=== PATIENT | male | born 1960 | race Caucasian/White ===

== ENCOUNTER 2023-04-24 11:40 | Inpatient (IN) ==
[2023-04-24] MEDS ORDERED: SODIUM CHLORIDE 0.9% 1,000 ML IV SCH (12:15)
--- NOTE | 2023-04-24 12:18 | Emergency Department Note ---
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 States that he is having pain in his kidney region but has not fallen. Has been unsteady on his feet. Not able to eat or drink anything. They report he has been able to take his pills. Denies significant difficulty breathing or cough or cold symptoms. No fevers reported. Brought immediately back from triage as he was noted to be hypotensive. Does report that he is on Keytruda and does have a port in the right upper chest but states it can be used. Denies significant chest pain at this time. Was recently evaluated here in the emergency department PAST MEDICAL HISTORY: As noted above MEDICATIONS: Reviewed home medications and they state he has been able to take t hose. SOCIAL HISTORY: Presents here with girlfriend PHYSICAL EXAM: GENERAL: alert and oriented in no acute distress on stretcher fatigued in appearance however Head: normocephalic and atraumatic EYES: No injection, discharge or icterus. NECK: Trachea midline. ENT: Mucous membranes pink and moist. LUNGS: Airway patent. No retractions. Breath sounds clear with good air entry bilaterally. HEART: Regular rate and rhythm. No chest wall tenderness with a right upper chest port appreciated subcutaneously without surrounding erythema or tenderness ABDOMEN: Soft and non-tender, without guarding or rebound. SKIN: Acyanotic, warm, dry, without rashes EXTREMITIES: Without swelling, tenderness or deformity NEUROLOGICAL: No focal deficits. No aphasia. No facial droop or slurred speech. EK bpm normal sinus rhythm. No PVC or PAC. No acute ST segment elevation or depression with a QTc of 456. CONTINUOUS CARDIAC MONITORING: was ordered and showed a heart rate of 90d bpm in normal sinus Patient's laboratory studies and imaging reviewed. Differential includes Infection, dehydration, metabolic abnormality, hypo/hyperglycemia, electrolyte disturbance, anemia, hypoxia, cardiac sources, intracerebral event, toxicologic, neurologic, as well as other pathologies. IMPRESSION/MEDICAL DECISION MAKING: Reviewed prior note and imaging reports in the computer including oncology note from the beginning of March and ER visit note from 10 days ago. Had CTs at that time and reviewed. Denies any new significant trauma. Unfortunately seems to have fairly advanced cancer. With his underlying esophageal cancer and difficult with intake unsure that this is easily fixable. Oncology note indicates that has seen Dr. Lawton who reports this is not surgical. Was given a course of antibiotics that he finished. Denies URI symptoms or significant cough. Denies fever Question if this is related to dehydration given his poor intake and given some IV fluids here. Port that he has is reportedly unable to be used. Low suspicion given the recent imaging that he has a PE. Again will evaluate to see if the stents are causing a problem with her signs of any other infection as well as obtain cultures and electrolytes to look for abnormalities. Does not seem to have any focal neurological deficits at this time and no reported significant trauma no bleeding in head CT or cervical spine CT. No significant swelling or injury noted in the extremities otherwise. Chest x-ray completed here shows evidence of some trace pleural effusion at the right base. Negative COVID testing. Blood work here without significant leukocytosis and stable minimal anemia. Borderline hyponatremia of 135. No other significant electrolyte abnormality noted. Lactate normal creatinine elevated to 2.29 today with a BUN of 33. Troponin normal and denies significant chest discomfort. U rinalysis with his indwelling stents cloudy orange with red blood cells white blood cells and some bacteria as well as a lot of epithelial cells. Difficult to interpret. Sent for culture. Procalcitonin does return moderately elevated 0.65. Given his significant illness given a dose of Zosyn. LFTs with significant abnormality today with elevated bilirubin 2.9, AST and ALT in the mid 200s as well as an alkaline phosphatase of 1802. CT imaging of the abdomen pelvis without contrast given his new renal dysfunction today shows evidence of continued cirrhosis of metastatic disease with appropriate positioning of his bilateral ureteral stents without other acute pathology noted. Will bring into the hospital for further care. Needs better long-term intake plan but a difficult situation given his underlying cancer. Family requesting urology and oncology involvement. Hospitalist was contacted. Received 2 L of IV crystalloid here for resuscitation but avoiding additional extra at this time given the finding of some effusion on the chest x- ray to avoid fluid overload. DIAGNOSIS: Dehydration, hypotension, esophageal cancer, SHANE, transaminitis DISPOSITION: Hospitalist will evaluate Patient was agreeable with this plan. Critical Care I have personally spent 32 minutes of critical care time in the direct management of this patient. This includes bedside care, interpretation of diagnostic studies, and testing, discussion with consultants, patient, and family members, and other required patient management activities. These 32 minutes is in excess of all separately billable procedures. Past Med/Surg History Medical History Bone lesion to have bone biopsies done in the near future - possible metastatic. CAD (coronary artery disease) LEXA X 1 TO LAD (02/05/18), multivessel CAD with stable class 1-2 angina pectoris per [facility] cardio records Congestive heart failure treated with entresto and jardiance. follows with Dr Jaramillo - DIMAS pate. Esophageal cancer currently being treated with chemotherapy [id number]. dx earlier in 2022. following with Oncology [facility] valerio hair. GIST, non-malignant History of malignant neoplasm of bladder secondary cancer in 2019 History of pheochromocytoma s/p adrenalectomy 02/2012 History of prostate cancer S/P PROSTATECTOMY Hx of myocardial infarction 2018 - SEE DIAMOND HAD 1 STENT Hyperlipidemia Hypertension Inguinal hernia currently on the right inguinal Maintenance chemotherapy receiving Keytruda [id number]. Port-A-Cath in place Keytruda treatments [id number]. last treatment 03/30/23. 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 patient has ongoing chemotherapy treatments every 6 weeks Traumatic leg injury ~1975 traumatic accident. extensive right leg partial amputation that was able to be repaired and reattached with extensive grafts. Surgical History H/O transurethral resection of bladder tumor (TURBT) History of biopsy of bladder hx bladder cancer. History of cholecystectomy History of cystoscopy History of esophagogastroduodenoscopy (EGD) Hx of cardiac cath LEXA X 1 TO LAD (02/05/18) Hx of colonoscopy Hx of foot surgery RLE AND SKIN GRAFTS-- MULTIPLE REVISIONS; SUBSEQUENT RLE LIMB DEFORMITY (2/2 TRAUMA)-- ABLE TO AMBULATE WITHOUT ASSISTANCE Hx of prostatectomy Family History Mother Family history of diabetes mellitus Other No family history of adverse response to anesthesia Social History Smoking Status: Never smoker Tobacco Type: Cigarettes and Smokeless Tobacco (Dip or Chew) Cigarettes Per Day: DECEMBER 2017; 1PPD X 30 YEARS; Second Hand Exposure: Yes (OCCASSIONALLY); Do You Dip or Chew Tobacco: Yes (quit 2018); Hx Alcohol Use: Yes (quit 2018) Alcohol type: hard liquor Hx Substance Use: No Preferred Language: Uruguayan Communication Ability: Effective Visual Impairment: No Limitations Cable Supervisor Required: No Beliefs That Will Affect Care: None Current Living Situation: Significant Other Current Living Situation Comment: FRIEND JOSÉ MIGUEL Feels Safe at Home: Yes Assistive Devices: None Allergies Allergies Allergy/AdvReac Type Severity Reaction Status Date / Time codeine Allergy Unknown HIVES Verified 04/05/23 15:12 Home Meds Home Medications Medication Instructions Recorded Confirmed aspirin 81 mg chewable tablet 81 mg PO QAM 04/21/18 04/14/23 alirocumab 75 mg/mL subcutaneous 75 mg subcut UD 03/28/23 04/14/23 pen injector (Praluent Pen) atorvastatin 80 mg tablet 80 mg PO QAM 03/28/23 04/14/23 betamethasone, augmented 0.05 % 1 applic topical BID PRN Skin 03/28/23 04/14/23 topical ointment Irritation empagliflozin 10 mg tablet 10 mg PO QAM 03/28/23 04/14/23 (Jardiance) ezetimibe 10 mg tablet 10 mg PO QAM 03/28/23 04/14/23 metoprolol succinate 100 mg 100 mg PO QAM 03/28/23 04/14/23 tablet,extended release 24 hr sacubitril 24 mg-valsartan 26 mg 1 tab PO BID 03/28/23 04/14/23 tablet (Entresto) spironolactone 25 mg tablet 25 mg PO QAM 03/28/23 04/14/23 Previous Rx's Medication Instructions Recorded oxycodone-acetaminophen 7.5 mg-325 1 tab PO Q8H PRN pain #7 tabs 04/08/23 mg tablet (Percocet) phenazopyridine 200 mg tablet 200 mg PO Q8H PRN pain #10 tabs 04/08/23 (Pyridium) tamsulosin 0.4 mg capsule 0.4 mg PO HS #30 caps 04/08/23 Saccharomyces boulardii 250 mg 250 mg PO BID #20 caps 04/14/23 capsule (Florastor) docusate sodium 100 mg capsule 100 mg PO BID PRN constipation #30 04/14/23 (Stool Softener) caps oxycodone 5 mg tablet 5 mg PO Q6H PRN pain #14 tabs 04/14/23 Results & Data (ED) Vital Signs Vital Signs - 24 hr 04/24/23 11:48 04/24/23 12:00 04/24/23 12:16 Temperature 36.3 C L Temperature Source Temporal Artery Scan Pulse Rate 99 H Pulse Rate [Apical] 94 H Pulse Rate from SpO2 Sensor Respiratory Rate 18 16 Respiratory Effort / Characteristics Non-Labored Respiratory Depth Normal Normal Respiratory Pattern Regular Blood Pressure 66/49 L Blood Pressure [Right Arm] 77/63 L Blood Pressure Mean 54 Blood Pressure Mean [Right Arm] 67 Blood Pressure Position [Right Arm] Sitting Pulse Oximetry 91 Oxygen Delivery Method Room Air Room Air Sepsis Recent Fever Within 48 Hours No Sepsis New/Unexplained Change in Mental Status N/A Sepsis Action Taken by Nursing No Action Required 04/24/23 12:10 04/24/23 12:01 04/24/23 12:30 Temperature Temperature Source Pulse Rate 99 H 88 Pulse Rate [Apical] Pulse Rate from SpO2 Sensor 97 H 87 Respiratory Rate 23 21 Respiratory Effort / Characteristics Respiratory Depth Respiratory Pattern Blood Pressure 77/63 L 89/62 L Blood Pressure [Right Arm] Blood Pressure Mean 67 71 Blood Pressure Mean [Right Arm] Blood Pressure Position [Right Arm] Pulse Oximetry 92 95 95 Oxygen Delivery Method Room Air Room Air Room Air Sepsis Recent Fever Within 48 Hours Sepsis New/Unexplained Change in Mental Status Sepsis Action Taken by Nursing 04/24/23 12:56 04/24/23 12:58 04/24/23 13:00 Temperature Temperature Source Pulse Rate 94 H 84 87 Pulse Rate [Apical] Pulse Rate from SpO2 Sensor 82 87 Respiratory Rate 22 23 17 Respiratory Effort / Characteristics Respiratory Depth Respiratory Pattern Blood Pressure 73/54 L 75/57 L 87/56 L Blood Pressure [Right Arm] Blood Pressure Mean 60 63 66 Blood Pressure Mean [Right Arm] Blood Pressure Position [Right Arm] Pulse Oximetry 95 94 99 Oxygen Delivery Method Room Air Room Air Room Air Sepsis Recent Fever Within 48 Hours Sepsis New/Unexplained Change in Mental Status Sepsis Action Taken by Nursing 04/24/23 13:30 Temperature Temperature Source Pulse Rate 81 Pulse Rate [Apical] Pulse Rate from SpO2 Sensor 80 Respiratory Rate 16 Respiratory Effort / Characteristics Respiratory Depth Respiratory Pattern Blood Pressure 93/58 L Blood Pressure [Right Arm] Blood Pressure Mean 69 Blood Pressure Mean [Right Arm] Blood Pressure Position [Right Arm] Pulse Oximetry 96 Oxygen Delivery Method Room Air Sepsis Recent Fever Within 48 Hours Sepsis New/Unexplained Change in Mental Status Sepsis Action Taken by Nursing Laboratory Data 04/24/23 12:14 04/24/23 12:14 Lab Results 04/24/23 04/24/23 04/24/23 Range/Units 12:14 12:14 12:14 WBC 8.56 (4.8-10.8) K/ul RBC 4.37 L (4.70-6.10) M/uL Hgb 12.7 L (14.0-18.0) g/dl POC Hgb (14.0-18.0) g/dl Hct 39.2 L (42.0-52.0) % POC Hct (42-52) % MCV 89.7 (80.0-100.0) fL MCH 29.1 (25.0-34.0) pg MCHC 32.4 (32.0-36.0) g/dL RDW Std Deviation 47.3 H (36.4-46.3) fL RDW Coeff of Misael 14.6 H (11.5-14.5) % Plt Count 250 (130-400) K/uL MPV 12.0 (9.4-12.4) fL Immature Gran % (Auto) 1.2 % Neut % (Auto) 80.5 % Lymph % (Auto) 7.2 % Page % (Auto) 7.4 % Eos % (Auto) 2.6 % Baso % (Auto) 1.1 % Neut # (Auto) 6.90 H (1.40-6.50) K/uL Lymph # (Auto) 0.62 L (1.20-3.40) K/uL Page # (Auto) 0.63 H (0.11-0.59) K/uL Eos # (Auto) 0.22 (0.00-0.50) K/uL Baso # (Auto) 0.09 (0.00-0.20) K/uL Immature Gran # (Auto) 0.10 (0.01-0.20) K/uL PT 10.4 (9.0-12.0) Seconds INR 0.9 (0.9-1.1) POC Sodium (135-144) mmol/L Sodium 135 L (136-145) mmol/L POC Potassium (3.3-5.0) mmol/L Potassium 4.7 (3.5-5.1) mmol/L POC Chloride (101-112) mmol/L Chloride 103 (98-107) mmol/L Carbon Dioxide 22 (21-32) mmol/L POC Total CO2 (24-31) mmol/L Anion Gap 10 (3-11) POC Anion Gap (16-25) mmol/L POC BUN (7-18) mg/dl BUN 33 H (6-23) mg/dl Creatinine 2.29 H (0.6-1.4) mg/dl POC Creatinine (0.6-1.3) mg/dl Est Cr Clr Drug Dosing 34.0 ml/min Est GFR ( Amer) 33.9 ml/min Est GFR (Non-Af Amer) 29.3 ml/min BUN/Creatinine Ratio 14.4 (10-20) Glucose 105 H (70-99(Fasting)) mg/dl POC Glucose (other) (70-99) mg/dl Lactate (0.4-2.0) mmol/L Calcium 9.7 (8.6-10.3) mg/dl POC Ioniz Calcium Michelle (1.12-1.32) mmol/l Magnesium 2.2 (1.7-2.4) mg/dl Total Bilirubin 2.9 H (0.2-1.0) mg/dl AST 641 H (13-39) U/L ALT 578 H (7-52) U/L Alkaline Phosphatase 1802 H (34-104) U/L Troponin I High Sens 11.7 (0-20) pg/ml Total Protein 6.8 (6.0-8.3) gm/dl Albumin 3.5 (3.4-5.0) gm/dl Globulin 3.3 (2.5-4.0) gm/dl Albumin/Globulin Ratio 1.1 (0.9-2) Lipase 95 H (11-82) U/L Procalcitonin (0-0.5) ng/ml TSH 4.306 (0.300-4.500) uIu/ml Urine Color Urine Appearance (Clear) Urine pH (4.5-7.5) Ur Specific Hamilton (1.000-1.030) Urine Protein (Negative) Urine Glucose (UA) (Negative) Urine Ketones (Negative) Urine Blood (Negative) Urine Nitrite (Negative) Urine Bilirubin (Negative) Urine Urobilinogen (Negative) Ur Leukocyte Esterase (Negative) Urine RBC (0-4) /hpf Urine WBC (0-5) /hpf Ur Epithelial Cells (0-5) /lpf Urine Bacteria (Negative) SARS-CoV-2, RNA, NAAT (NEGATIVE) Blood Type Antibody Screen 04/24/23 04/24/23 04/24/23 Range/Units 12:14 12:14 12:14 WBC (4.8-10.8) K/ul RBC (4.70-6.10) M/uL Hgb (14.0-18.0) g/dl POC Hgb (14.0-18.0) g/dl Hct (42.0-52.0) % POC Hct (42-52) % MCV (80.0-100.0) fL MCH (25.0-34.0) pg MCHC (32.0-36.0) g/dL RDW Std Deviation (36.4-46.3) fL RDW Coeff of Misael (11.5-14.5) % Plt Count (130-400) K/uL MPV (9.4-12.4) fL Immature Gran % (Auto) % Neut % (Auto) % Lymph % (Auto) % Page % (Auto) % Eos % (Auto) % Baso % (Auto) % Neut # (Auto) (1.40-6.50) K/uL Lymph # (Auto) (1.20-3.40) K/uL Page # (Auto) (0.11-0.59) K/uL Eos # (Auto) (0.00-0.50) K/uL Baso # (Auto) (0.00-0.20) K/uL Immature Gran # (Auto) (0.01-0.20) K/uL PT (9.0-12.0) Seconds INR (0.9-1.1) POC Sodium (135-144) mmol/L Sodium (136-145) mmol/L POC Potassium (3.3-5.0) mmol/L Potassium (3.5-5.1) mmol/L POC Chloride (101-112) mmol/L Chloride (98-107) mmol/L Carbon Dioxide (21-32) mmol/L POC Total CO2 (24-31) mmol/L Anion Gap (3-11) POC Anion Gap (16-25) mmol/L POC BUN (7-18) mg/dl BUN (6-23) mg/dl Creatinine (0.6-1.4) mg/dl POC Creatinine (0.6-1.3) mg/dl Est Cr Clr Drug Dosing ml/min Est GFR ( Amer) ml/min Est GFR (Non-Af Amer) ml/min BUN/Creatinine Ratio (10-20) Glucose (70-99(Fasting)) mg/dl POC Glucose (other) (70-99) mg/dl Lactate 1.6 (0.4-2.0) mmol/L Calcium (8.6-10.3) mg/dl POC Ioniz Calcium Michelle (1.12-1.32) mmol/l Magnesium (1.7-2.4) mg/dl Total Bilirubin (0.2-1.0) mg/dl AST (13-39) U/L ALT (7-52) U/L Alkaline Phosphatase (34-104) U/L Troponin I High Sens (0-20) pg/ml Total Protein (6.0-8.3) gm/dl Albumin (3.4-5.0) gm/dl Globulin (2.5-4.0) gm/dl Albumin/Globulin Ratio (0.9-2) Lipase (11-82) U/L Procalcitonin 0.65 H (0-0.5) ng/ml TSH (0.300-4.500) uIu/ml Urine Color Urine Appearance (Clear) Urine pH (4.5-7.5) Ur Specific Hamilton (1.000-1.030) Urine Protein (Negative) Urine Glucose (UA) (Negative) Urine Ketones (Negative) Urine Blood (Negative) Urine Nitrite (Negative) Urine Bilirubin (Negative) Urine Urobilinogen (Negative) Ur Leukocyte Esterase (Negative) Urine RBC (0-4) /hpf Urine WBC (0-5) /hpf Ur Epithelial Cells (0-5) /lpf Urine Bacteria (Negative) SARS-CoV-2, RNA, NAAT (NEGATIVE) Blood Type O Positive Antibody Screen NEGATIVE 04/24/23 04/24/23 04/24/23 Range/Units 12:24 12:37 Unknown WBC (4.8-10.8) K/ul RBC (4.70-6.10) M/uL Hgb (14.0-18.0) g/dl POC Hgb 10.2 L (14.0-18.0) g/dl Hct (42.0-52.0) % POC Hct 30 L (42-52) % MCV (80.0-100.0) fL MCH (25.0-34.0) pg MCHC (32.0-36.0) g/dL RDW Std Deviation (36.4-46.3) fL RDW Coeff of Misael (11.5-14.5) % Plt Count (130-400) K/uL MPV (9.4-12.4) fL Immature Gran % (Auto) % Neut % (Auto) % Lymph % (Auto) % Page % (Auto) % Eos % (Auto) % Baso % (Auto) % Neut # (Auto) (1.40-6.50) K/uL Lymph # (Auto) (1.20-3.40) K/uL Page # (Auto) (0.11-0.59) K/uL Eos # (Auto) (0.00-0.50) K/uL Baso # (Auto) (0.00-0.20) K/uL Immature Gran # (Auto) (0.01-0.20) K/uL PT (9.0-12.0) Seconds INR (0.9-1.1) POC Sodium 141 (135-144) mmol/L Sodium (136-145) mmol/L POC Potassium 3.9 (3.3-5.0) mmol/L Potassium (3.5-5.1) mmol/L POC Chloride 109 (101-112) mmol/L Chloride (98-107) mmol/L Carbon Dioxide (21-32) mmol/L POC Total CO2 18 L (24-31) mmol/L Anion Gap (3-11) POC Anion Gap 18.0 (16-25) mmol/L POC BUN 28 H (7-18) mg/dl BUN (6-23) mg/dl Creatinine (0.6-1.4) mg/dl POC Creatinine 1.9 H (0.6-1.3) mg/dl Est Cr Clr Drug Dosing ml/min Est GFR ( Amer) ml/min Est GFR (Non-Af Amer) ml/min BUN/Creatinine Ratio (10-20) Glucose (70-99(Fasting)) mg/dl POC Glucose (other) 86 (70-99) mg/dl Lactate (0.4-2.0) mmol/L Calcium (8.6-10.3) mg/dl POC Ioniz Calcium Michelle 1.01 L (1.12-1.32) mmol/l Magnesium (1.7-2.4) mg/dl Total Bilirubin (0.2-1.0) mg/dl AST (13-39) U/L ALT (7-52) U/L Alkaline Phosphatase (34-104) U/L Troponin I High Sens (0-20) pg/ml Total Protein (6.0-8.3) gm/dl Albumin (3.4-5.0) gm/dl Globulin (2.5-4.0) gm/dl Albumin/Globulin Ratio (0.9-2) Lipase (11-82) U/L Procalcitonin (0-0.5) ng/ml TSH (0.300-4.500) uIu/ml Urine Color Barnard Urine Appearance Cloudy A (Clear) Urine pH (4.5-7.5) Ur Specific Hamilton 1.024 (1.000-1.030) Urine Protein (Negative) Urine Glucose (UA) (Negative) Urine Ketones (Negative) Urine Blood (Negative) Urine Nitrite (Negative) Urine Bilirubin (Negative) Urine Urobilinogen (Negative) Ur Leukocyte Esterase (Negative) Urine RBC >30 H (0-4) /hpf Urine WBC >30 H (0-5) /hpf Ur Epithelial Cells >30 H (0-5) /lpf Urine Bacteria 2+ H (Negative) SARS-CoV-2, RNA, NAAT NEGATIVE (NEGATIVE) Blood Type Antibody Screen Administered Medications Discontinued Medications Sodium Chloride (Nss) 1,000 mls @ 999 mls/hr IV .Q1H1M JORGE Stop: 04/24/23 13:15 Last Infusion: 04/24/23 13:16 Dose: 0 mls/hr Documented By: Admin: 04/24/23 12:17 Dose: 999 mls/hr Documented By: AM Lactated Ringer's (Lr) 1,000 mls @ 999 mls/hr IV .Q1H1M ONE Stop: 04/24/23 13:46 Last Infusion: 04/24/23 13:59 Dose: 0 mls/hr Documented By: Admin: 04/24/23 13:04 Dose: 999 mls/hr Documented By: KK Piperacillin Sod/Tazobactam Sod (Zosyn) 4.5 gm in 100 mls @ 200 mls/hr IV NOW ONE Stop: 04/24/23 13:42 Last Infusion: 04/24/23 13:59 Dose: 0 mls/hr Documented By: Admin: 04/24/23 13:22 Dose: 200 mls/hr Documented By: KK Imaging Data Radiologist's Impression: Chest X-Ray 04/24/23 12:06 XR chest 1V portable CLINICAL HISTORY: weakness TECHNIQUE: Single frontal radiograph of the chest was obtained. Comparison: Comparison is made to chest radiograph 04/14/2023 FINDINGS: A port catheter is seen. The cardiomediastinal silhouette is normal. Mild perihilar opacities are seen, right greater than left. Minimal emphysematous changes are seen. No evidence of pleural effusion or pneumothorax. IMPRESSION: Mild pulmonary edema. Right greater than left perihilar opacities may reflect atelectasis, less likely viral pneumonia. ACT 112: Negative or not required by law. Electronically signed by: Eugenio Mohr M.D. 04/24/2023 12:46 PM Abdomen/Pelvis CT 04/24/23 12:27 CT abd pelvis wo con CLINICAL HISTORY: kidney pain, SHANE, cancer stents TECHNIQUE: Helical axial images of the abdomen and pelvis were obtained. Automated dose lowering techniques and/or adjustment according to patient size were utilized for this exam. This exam was performed without intravenous contrast. CT DOSE: 1209.53 mGy.cm COMPARISON: Comparison is made to CT abdomen pelvis 04/14/2023 FINDINGS: Lower chest: Small bilateral pleural effusions are seen with underlying atelectasis. Partial visualization of thoracic lymphadenopathy. Liver: Periportal edema is seen. Nodular contour of the liver is compatible with cirrhosis. Gallbladder and biliary tree: Patient is status post cholecystectomy. No intra- or extrahepatic biliary ductal dilation. Pancreas: Unremarkable, no focal lesions. Spleen: Unremarkable. Adrenals: Unremarkable. Kidneys and ureters: Bilateral nephroureteral stents are seen. Left hy dronephrosis is seen. Irregular soft tissue about the left ureter is again noted. Bladder: Limited evaluation due to underdistention. Reproductive organs: Unremarkable. Bowel: A hiatal hernia is seen. Lymph nodes Retroperitoneal: A robbie hepatis lymph node measures 35 mm in short axis, increased from prior. Additional retroperitoneal lymphadenopathy is seen. Pelvic: Unremarkable. Mesenteric: Unremarkable. Peritoneum: Redemonstration of peritoneal deposits most prominent in the right upper quadrant. Mild ascites is seen. Vessels: Atherosclerotic calcifications are seen. Abdominal wall: Bilateral fat-containing inguinal hernias are seen. Bones: A few osteolytic foci are seen in the lower bony metastatic disease, similar to prior exam. IMPRESSION: 1. Left hydronephrosis is again seen despite presence of bilateral ureteral stents. Otherwise no acute abnormalities are seen. 2. Robbie hepatis and retroperitoneal lymphadenopathy are again seen. The dominant lymph node in the robbie hepatis is enlarged from prior exam. 3. Redemonstration of metastatic soft tissue implants and lucencies in the spine concerning for osteolytic metastatic disease. 4. Cirrhosis and mild ascites. 5. Trace bilateral pleural effusions. ACT 112: Negative or not required by law. Electronically signed by: Eugenio Mohr M.D. 04/24/2023 2:11 PM Discharge Plan Visit Data Chief Complaint: Illness Stated Complaint: DEHYDRATED, UNABLE TO EAT, TROUBLE SWALLOWING ED Provider: Chris Del Valle Discharge Problem: SHANE (acute kidney injury), Metastatic disease, Esophageal cancer, Weakness Patient Disposition: Being Evaluated by Hospitalist Forms Stand Alone Forms: My [facility] Prescriptions Prescriptions: No Action aspirin 81 mg Tablet,Chewable 81 mg PO QAM atorvastatin 80 mg tablet 80 mg PO QAM metoprolol succinate 100 mg tablet extended release 24 hr 100 mg PO QAM Rx Instructions: Pharmacy says the 25 mg script came first then a month later the 100 mg. Pt isn't 100% sure of his medications spironolactone 25 mg tablet 25 mg PO QAM betamethasone, augmented 0.05 % ointment 1 applic TOPICAL BID PRN (Reason: Skin Irritation) ezetimibe 10 mg tablet 10 mg PO QAM Jardiance 10 mg tablet 10 mg PO QAM Entresto 24-26 mg tablet 1 tab PO BID Praluent Pen 75 mg/mL pen injector 75 mg SUBCUT UD Rx Instructions: Inject 75mg subcutaneously every other Wednesday phenazopyridine [Pyridium] 200 mg tablet 200 mg PO Q8H PRN (Reason: pain) Qty: 10 0RF tamsulosin 0.4 mg capsule 0.4 mg PO HS Qty: 30 0RF oxycodone-acetaminophen [Percocet] 7.5-325 mg tablet 1 tab PO Q8H PRN (Reason: pain) Qty: 7 0RF oxycodone 5 mg tablet 5 mg PO Q6H PRN (Reason: pain) Qty: 14 0RF docusate sodium [Stool Softener] 100 mg capsule 100 mg PO BID PRN (Reason: constipation) Qty: 30 0RF Saccharomyces boulardii [Florastor] 250 mg capsule 250 mg PO BID Qty: 20 0RF Rx Instructions: swallow whole Referrals Referrals: Berta Logan DO [Primary Care Provider] -
[2023-04-24 12:36] LABS: iSTAT Creatinine 1.9 mg/dl (0.6-1.3); iSTAT Hemoglobin 10.2 g/dl (14.0-18.0); iSTAT Ionized Calcium 1.01 mmol/l (1.12-1.32); iSTAT Potassium 3.9 mmol/L (3.3-5.0)
[2023-04-24] MEDS ORDERED: LACTATED RINGER'S 1,000 ML IV ONE (12:46)
--- NOTE | 2023-04-24 12:47 | XRay Report ---
XR chest 1V portable CLINICAL HISTORY: weakness TECHNIQUE: Single frontal radiograph of the chest was obtained. Comparison: Comparison is made to chest radiograph 04/14/2023 FINDINGS: A port catheter is seen. The cardiomediastinal silhouette is normal. Mild perihilar opacities are see n, right greater than left. Minimal emphysematous changes are seen. No evidence of pleural effusion o r pneumothorax. IMPRESSION: Mild pulmonary edema. Right greater than left perihilar opacities may reflect atelectasis, less likel y viral pneumonia. ACT 112: Negative or not required by law. Electronically signed by: Eugenio Mohr M.D. 04/24/2023 12:46 PM
[2023-04-24 12:49] LABS: Basophils # (auto) 0.09 K/uL (0.00-0.20); Basophils % (auto) 1.1 %; Eosinophils # (auto) 0.22 K/uL (0.00-0.50); Eosinophils % (auto) 2.6 %; Hematocrit (blood only) 39.2 % (42.0-52.0); Hemoglobin 12.7 g/dl (14.0-18.0); Immature Granulocytes % (auto) 1.2 %; Lymphocytes # (auto) 0.62 K/uL (1.20-3.40); Lymphocytes % (auto) 7.2 %; Mean Corpuscular Hemoglobin 29.1 pg (25.0-34.0); Mean Corpuscular Hgb Conc 32.4 g/dL (32.0-36.0); Mean Corpuscular Volume 89.7 fL (80.0-100.0); Monocytes # (auto) 0.63 K/uL (0.11-0.59); Monocytes % (auto) 7.4 %; Neutrophils % (auto) 80.5 %; Platelet Count 250 K/uL (130-400); RDW Coefficient of Variation 14.6 % (11.5-14.5); RDW Standard Deviation 47.3 fL (36.4-46.3); Red Blood Count 4.37 M/uL (4.70-6.10); White Blood Count 8.56 K/ul (4.8-10.8)
[2023-04-24 12:52] LABS: BUN Creatinine Ratio 14.4 (10-20); Calcium 9.7 mg/dl (8.6-10.3); Est GFR (African American) 33.9 ml/min; Est GFR (Non-African American) 29.3 ml/min; Potassium 4.7 mmol/L (3.5-5.1)
[2023-04-24 12:57] LABS: Troponin I High Sensitivity 11.7 pg/ml (0-20)
[2023-04-24 13:02] LABS: Appearance Urine Cloudy (Clear); Color Urine Orange; Specific Gravity Urine 1.024 (1.000-1.030)
[2023-04-24 13:02] LABS: INR 0.9 (0.9-1.1); Prothrombin Time 10.4 Seconds (9.0-12.0)
[2023-04-24 13:04] LABS: Epithelial Cell Urine >30 /lpf (0-5)
[2023-04-24 13:05] LABS: Bacteria Urine 2+ (Negative); RBC Urine >30 /hpf (0-4); WBC Urine >30 /hpf (0-5)
[2023-04-24 13:06] LABS: Thyroid Stimulating Hormone 4.306 uIu/ml (0.300-4.500)
[2023-04-24 13:09] LABS: Albumin Globulin Ratio 1.1 (0.9-2); Albumin Level 3.5 gm/dl (3.4-5.0); Bilirubin,Total 2.9 mg/dl (0.2-1.0); Globulin 3.3 gm/dl (2.5-4.0); Magnesium 2.2 mg/dl (1.7-2.4); Total Protein 6.8 gm/dl (6.0-8.3)
[2023-04-24] MEDS ORDERED: PIPERACILLIN/TAZOBACTAM 4.5 GM/100 ML BAG IV ONE (13:13)
--- NOTE | 2023-04-24 14:12 | CT Scan Report ---
CT abd pelvis wo con CLINICAL HISTORY: kidney pain, SHANE, cancer stents TECHNIQUE: Helical axial images of the abdomen and pelvis were obtained. Automated dose lowering tech niques and/or adjustment according to patient size were utilized for this exam. This exam was perfor med without intravenous contrast. CT DOSE: 1209.53 mGy.cm COMPARISON: Comparison is made to CT abdomen pelvis 04/14/2023 FINDINGS: Lower chest: Small bilateral pleural effusions are seen with underlying atelectasis. Partial visuali zation of thoracic lymphadenopathy. Liver: Periportal edema is seen. Nodular contour of the liver is compatible with cirrhosis. Gallbladder and biliary tree: Patient is status post cholecystectomy. No intra- or extrahepatic bilia ry ductal dilation. Pancreas: Unremarkable, no focal lesions. Spleen: Unremarkable. Adrenals: Unremarkable. Kidneys and ureters: Bilateral nephroureteral stents are seen. Left hydronephrosis is seen. Irregular soft tissue about the left ureter is again noted. Bladder: Limited evaluation due to underdistention. Reproductive organs: Unremarkable. Bowel: A hiatal hernia is seen. Lymph nodes Retroperitoneal: A micheal hepatis lymph node measures 35 mm in short axis, increased from prior. Addit ional retroperitoneal lymphadenopathy is seen. Pelvic: Unremarkable. Mesenteric: Unremarkable. Peritoneum: Redemonstration of peritoneal deposits most prominent in the right upper quadrant. Mild a scites is seen. Vessels: Atherosclerotic calcifications are seen. Abdominal wall: Bilateral fat-containing inguinal hernias are seen. Bones: A few osteolytic foci are seen in the lower bony metastatic disease, similar to prior exam. IMPRESSION: 1. Left hydronephrosis is again seen despite presence of bilateral ureteral stents. Otherwise no acu te abnormalities are seen. 2. Micheal hepatis and retroperitoneal lymphadenopathy are again seen. The dominant lymph node in the micheal hepatis is enlarged from prior exam. 3. Redemonstration of metastatic soft tissue implants and lucencies in the spine concerning for oste olytic metastatic disease. 4. Cirrhosis and mild ascites. 5. Trace bilateral pleural effusions. ACT 112: Negative or not required by law. Electronically signed by: Eugenio Mohr M.D. 04/24/2023 2:11 PM
[2023-04-24] MEDS ORDERED: AMMONIUM LACTATE 12% LOTION 225 GM BTL EXT PRN (16:31)
--- NOTE | 2023-04-24 16:41 | History & Physical Report ---
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 Family and patient requesting all options pursued at this point. Effort made to elucidate underlying source may be related to malignancy and that aggressive measures may not be available at this stage. However it would be prudent to rule out infectious etiologies and other manageable options at this time. #Sepsis of unclear etiology #immunocompromised 2/2 immunotherapy -No clear infectious source, likely suspect malignancy related decompensation; however, given acute illness, +procal, and potential for infection, would be prudent to empirically cover will work up ensues -Follow infectious work up -Continue zosyn empirically -Management of other comorbidities as follows #Acute SHANE #Left hydronephrosis s/p bilateral ureteral stent placement -Stents placed 04/[address] hillman; potentially multifactial, obstructive 2/2 ?malignant process and prerenal given poor intake/ hypotension -Continue tamsulosin -Consult urology for management of stents, next steps - Avoid nephrotoxic agents, stricts I/Os -Trend Cr #Chronic HFmrEF (42% 11/2022) 2/2 ICM s/pt LEXA to the mid LAD #Prior STEMI -Continue Aspirin 81mg daily, continue zetia 10mg -Hold Atorvastatin 80mg daily, praulent 2/2 LFT elevations -Hold Spironolactone 25mg, Jardiance 10mg, and Entresto 2/2 SHANE and hypotension -Hold Metoprolol 100mg daily 2/2 hypotension -Resume above as able -Monitor on telemetry -Strict I/Os monitor respiratory status 2/2 aggressive fluid resuscitation -Consider Cardiology consult if concern for decompensation s/p resuscitation -Currently gentle IVF with 1/2NS @ 83cc/hr #Decompensated cirrhosis given ascites #Elevated LFTs #Lymph node involvement near robbie-hepatis -Concern for malignant involvement -Liver US to assess vasculature given cirrhotic appearance but no duct involvement -Trend LFTs, plus acute hepatitis panel -Consult to GI given plan to pursue all options per family request -IR paracentesis, r/o SBP or infectious process #Metastatic adenocarcinoma 1/3 of esophagus #Prior GIST tumor s/p resection of small bowel #Urothelial cell carcinoma -He completed 12 cycles of FOLFOX plus Keytruda treatment; Herceptin was discontinued because of the decreasing ejection fraction -Recent PET with notable increased hypermetabolic areas, including diffuse bone involvement and involvement of nodes around liver confluence -Consult placed to Oncology (Dr Miles yoo and appears to be consulting technical director) to aid in family discussion about prognosis given current status #Uncontrolled HLD -Home regimen: Lipitor 80 mg daily and Zetia 10 mg daily and Praluent, started 02/26/23 -Hold praluent and statin 2/2 lfts DVT heparin Bowel regimen colace bid mirlax daily Zofran prn Lytes:replace prn Admit PCU/tele further further management of sepsis of unclear etiology and acute liver injury Admission and Anticipated Discharge Date Admission Date: Time spent evaluating patient, direct bedside care, chart review, placing orders, interpretation of diagnostic studies, discussion with consultants, patient, and family members, as well as other required patient management activities is 75 minutes. History of Present Illness Chief Complaint: Abdominal pain, bilious vomiting Primary Care Provider: Berta Logan DO Mr. 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 due to multiple concerns, including abdominal pain, vomiting, poor appetite, weakness, and hematuria. On 04/08/2023, patient states he had stents placed by Dr Hillman and since then has experienced dull aching in his back. Patient presented to ED on 04/14 due to the pain and felt improved after IV fluids and pain medication. Patient completed course of Keflex post stent placement--but despite that, still notes continued pain. Shortly after the ED visit, patient reports an episode of projectile vomiting; then on 04/23, a massive quantity of bilious vomiting. Patient states his urine is also progressively darker and with gross blood often--but his UOP has decreased significantly. He reports minimal appetite. He states he took all of his medications this morning, but progressive became weaker, prompting visit to ED. Upon arrival to ED, patient was hypotensive to 70s, but responded to fluid boluses with pressures stabilizing in 90s. HRs in 80s and saturating well on room air. Imaging revealed cirrhotic liver, surgical absence of gallbladder without appar ent ductal dilatation, mild ascites with peritoneal deposits. Labs with stable anemia at 12, SHANE to 2.2, AST 641, ALT 578, ALP 1802, TB 2.9, procal 0.65, lipase 95 Patient administered zosyn, 2L IV Admit to PCU/Tele for management of sepsis of unclear source and acute liver injury Family at bedside ( and daughter). Family expresses clear understanding of extent of underlying malignancy, but wishes to pursue all avenues and evaluations available. The only reconsideration is if patient is to be deemed "brain " that discussion regarding comfort measures will be considered. Allergies Allergy/AdvReac Type Severity Reaction Status Date / Time codeine Allergy Unknown HIVES Verified 04/24/23 15:44 Home Medications Medication Instructions Recorded Confirmed Type aspirin 81 mg chewable tablet 81 mg PO QAM 04/21/18 04/24/23 History alirocumab 75 mg/mL subcutaneous 75 mg subcut UD 03/28/23 04/24/23 History pen injector (Praluent Pen) atorvastatin 80 mg tablet 80 mg PO QAM 03/28/23 04/24/23 History empagliflozin 10 mg tablet 10 mg PO QAM 03/28/23 04/24/23 History (Jardiance) ezetimibe 10 mg tablet 10 mg PO QAM 03/28/23 04/24/23 History metoprolol succinate 100 mg 100 mg PO QAM 03/28/23 04/24/23 History tablet,extended release 24 hr sacubitril 24 mg-valsartan 26 mg 1 tab PO BID 03/28/23 04/24/23 History tablet (Entresto) spironolactone 25 mg tablet 25 mg PO QAM 03/28/23 04/24/23 History phenazopyridine 200 mg tablet 200 mg PO Q8H PRN pain #10 tabs 04/08/23 04/24/23 Rx (Pyridium) tamsulosin 0.4 mg capsule 0.4 mg PO HS #30 caps 04/08/23 04/24/23 Rx Saccharomyces boulardii 250 mg 250 mg PO BID #20 caps 04/14/23 04/24/23 Rx capsule (Florastor) docusate sodium 100 mg capsule 100 mg PO BID PRN constipation #30 04/14/23 04/24/23 Rx (Stool Softener) caps prochlorperazine maleate 10 mg 10 mg PO Q6 PRN Nausea 04/24/23 04/24/23 History tablet Past Med/Surg History Medical History Bone lesion to have bone biopsies done in the near future - possible metastatic. CAD (coronary artery disease) LEXA X 1 TO LAD (02/05/18), multivessel CAD with stable class 1-2 angina pectoris per [facility] cardio records Congestive heart failure treated with entresto and jardiance. follows with Dr Jaramillo - DIMAS pate. Esophageal cancer currently being treated with chemotherapy [id number]. dx earlier in 2022. following with Oncology [facility]. GIST, non-malignant History of malignant neoplasm of bladder secondary cancer in 2019 History of pheochromocytoma s/p adrenalectomy 02/2012 History of prostate cancer S/P PROSTATECTOMY Hx of myocardial infarction 2018 - SEE [facility] HAD 1 STENT Hyperlipidemia Hypertension Inguinal hernia currently on the right inguinal Maintenance chemotherapy receiving Keytruda [id number]. Port-A-Cath in place Keytruda treatments [id number]. last treatment 03/30/23. 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 patient has ongoing chemotherapy treatments every 6 weeks Traumatic leg injury ~1974 traumatic accident. extensive right leg partial amputation that was able to be repaired and reattached with extensive grafts. Surgical History H/O transurethral resection of bladder tumor (TURBT) History of biopsy of bladder hx bladder cancer. History of cholecystectomy History of cystoscopy History of esophagogastroduodenoscopy (EGD) Hx of cardiac cath LEXA X 1 TO LAD (02/05/18) Hx of colonoscopy Hx of foot surgery RLE AND SKIN GRAFTS-- MULTIPLE REVISIONS; SUBSEQUENT RLE LIMB DEFORMITY (2/2 TRAUMA)-- ABLE TO AMBULATE WITHOUT ASSISTANCE Hx of prostatectomy Family History Mother Family history of diabetes mellitus Other No family history of adverse response to anesthesia Social History Smoking Status: Former smoker Tobacco Type: Cigarettes and Smokeless Tobacco (Dip or Chew) Cigarettes Per Day: DECEMBER 2017; 1PPD X 30 YEARS; Second Hand Exposure: No; Do You Dip or Chew Tobacco: No; Tobacco Cessation Education Requested by Patient: No Hx Alcohol Use: Yes (patient quit 6 years agon) Alcohol type: hard liquor Hx Substance Use: No Preferred Language: Chinese Communication Ability: Effective Visual Impairment: No Limitations Blow Torch Burner Required: No Beliefs That Will Affect Care: None Current Living Situation: Spouse Current Living Situation Comment: patient feels safe Other Information That Helps Us Care for You: No Feels Safe at Home: Yes Safety Concerns: Feels Safe At This Time Assistive Devices: None Review of Systems Review of Systems: Constitutional: (-) fever/chills, (+) recent loss of weight, (+) appetite changes, (+) night sweats. Head: (-) headache, (-) dizziness. Eye: (-) blurring of vision, (-) double vision, (-) redness. Ear: (-) hearing loss, (-) discharge, (-) vertigo Nose: (+) discharge, (-) bleeding, (-) congestion, (-) post nasal drip. Throat: (-) sore throat, (+) hoarseness of voice, (+) odynophagia. Cardiovascular: (-) chest pain, (-) palpitations, (-) syncope, (-) orthopnea, (- ) PND, (-) leg swelling. Respiratory: (-) shortness of breath, (-) cough, (-) wheezing, (-) hemoptysis. Neuro: (+) weakness in extremities, (-) numbness, (-) tingling, (-) tremor. Gastrointestinal: (++) belly pain, (++) belly distension, (+) nausea, (++) vomiting, (-) diarrhea, (++) constipation, (-) hematemesis, (-) hematochezia, (- ) bowel incontinence Genitourinary: (+) hematuria, (+) dysuria, (-) polyuria, (-) hesitancy, (-) frequency, (-) urinary incontinence. Musculoskeletal: (-) myalgia, (-) arthralgia. Skin: (-) rashes. Endocrine: (-) heat/cold intolerance. Physical Exam Physical Exam: GENERAL APPEARANCE: AxOx4, unwell HEENT: NC, AT. MMM. EOMI, clear conjunctiva, oropharynx clear, poor dentition, bile stained lips NECK: Supple without lymphadenopathy. No stiffness or restricted ROM. HEART: Normal rate and regular rhythm, normal S1/S1, no m/r/g LUNGS: CTAB, moving air well. No crackles or wheezes are heard. ABDOMEN: distended, firm HM, nontender, no CVA tenderness elucidated on exam EXTREMITIES: Without cyanosis, clubbing or edema. NEUROLOGICAL: Grossly nonfocal. Alert and oriented, moving all 4 extremities. CN not formally tested but appear grossly intact Results & Data Results & Data Vital Signs (Past 12 Hours) Vital Signs Temp Pulse Pulse Resp BP BP Pulse Ox 04/24/23 15:56 81 04/24/23 15:30 87 22 95 04/24/23 15:30 93/76 L 04/24/23 15:00 81 19 100 04/24/23 15:00 99/62 L 04/24/23 14:54 92/75 L 04/24/23 14:54 85 21 98 04/24/23 14:33 84/57 L 04/24/23 14:33 76 22 96 04/24/23 14:30 73 20 96 04/24/23 14:30 66/40 L 04/24/23 14:00 74 16 97 04/24/23 14:00 88/62 L 04/24/23 13:30 81 16 93/58 L 96 04/24/23 13:00 87 17 87/56 L 99 04/24/23 12:58 84 23 75/57 L 94 04/24/23 12:56 94 H 22 73/54 L 95 04/24/23 12:30 88 21 89/62 L 95 04/24/23 12:01 99 H 23 77/63 L 95 04/24/23 12:10 92 04/24/23 12:16 94 H 16 77/63 L 91 04/24/23 12:00 99 H 04/24/23 11:48 36.3 C L 18 66/49 L O2 Del Method 04/24/23 15:56 04/24/23 15:30 Room Air 04/24/23 15:30 04/24/23 15:00 Room Air 04/24/23 15:00 04/24/23 14:54 04/24/23 14:54 04/24/23 14:33 04/24/23 14:33 04/24/23 14:30 04/24/23 14:30 04/24/23 14:00 04/24/23 14:00 04/24/23 13:30 Room Air 04/24/23 13:00 Room Air 04/24/23 12:58 Room Air 04/24/23 12:56 Room Air 04/24/23 12:30 Room Air 04/24/23 12:01 Room Air 04/24/23 12:10 Room Air 04/24/23 12:16 Room Air 04/24/23 12:00 04/24/23 11:48 Room Air Laboratory Results Short CBC 04/24/23 Range/Units 12:14 WBC 8.56 (4.8-10.8) K/ul Hgb 12.7 L (14.0-18.0) g/dl Hct 39.2 L (42.0-52.0) % Plt Count 250 (130-400) K/uL BMP 04/24/23 12:14 Sodium 135 L Potassium 4.7 Chloride 103 Carbon Dioxide 22 BUN 33 H Creatinine 2.29 H Glucose 105 H Calcium 9.7 Liver Function 04/24/23 Range/Units 12:14 Total Bilirubin 2.9 H (0.2-1.0) mg/dl AST 641 H (13-39) U/L ALT 578 H (7-52) U/L Alkaline Phosphatase 1802 H (34-104) U/L Albumin 3.5 (3.4-5.0) gm/dl Urine 04/24/23 Range/Units 12:37 Urine Color [place] Urine Appearance Cloudy A (Clear) Urine pH (4.5-7.5) Ur Specific [place] 1.024 (1.000-1.030) Urine Protein (Negative) Urine Glucose (UA) (Negative) Diagnostic Findings Chest X-Ray 04/24/23 12:06 XR chest 1V portable CLINICAL HISTORY: weakness TECHNIQUE: Single frontal radiograph of the chest was obtained. Comparison: Comparison is made to chest radiograph 04/14/2023 FINDINGS: A port catheter is seen. The cardiomediastinal silhouette is normal. Mild perihilar opacities are seen, right greater than left. Minimal emphysematous changes are seen. No evidence of pleural effusion or pneumothorax. IMPRESSION: Mild pulmonary edema. Right greater than left perihilar opacities may reflect atelectasis, less likely viral pneumonia. ACT 112: Negative or not required by law. Electronically signed by: Eugenio Mohr M.D. 04/24/2023 12:46 PM Abdomen/Pelvis CT 04/24/23 12:27 CT abd pelvis wo con CLINICAL HISTORY: kidney pain, SHANE, cancer stents TECHNIQUE: Helical axial images of the abdomen and pelvis were obtained. Automated dose lowering techniques and/or adjustment according to patient size were utilized for this exam. This exam was performed without intravenous contrast. CT DOSE: 1209.53 mGy.cm COMPARISON: Comparison is made to CT abdomen pelvis 04/14/2023 FINDINGS: Lower chest: Small bilateral pleural effusions are seen with underlying atelectasis. Partial visualization of thoracic lymphadenopathy. Liver: Periportal edema is seen. Nodular contour of the liver is compatible with cirrhosis. Gallbladder and biliary tree: Patient is status post cholecystectomy. No intra- or extrahepatic biliary ductal dilation. Pancreas: Unremarkable, no focal lesions. Spleen: Unremarkable. Adrenals: Unremarkable. Kidneys and ureters: Bilateral nephroureteral stents are seen. Left hydronephrosis is seen. Irregular soft tissue about the left ureter is again noted. Bladder: Limited evaluation due to underdistention. Reproductive organs: Unremarkable. Bowel: A hiatal hernia is seen. Lymph nodes Retroperitoneal: A robbie hepatis lymph node measures 35 mm in short axis, increased from prior. Additional retroperitoneal lymphadenopathy is seen. Pelvic: Unremarkable. Mesenteric: Unremarkable. Peritoneum: Redemonstration of peritoneal deposits most prominent in the right upper quadrant. Mild ascites is seen. Vessels: Atherosclerotic calcifications are seen. Abdominal wall: Bilateral fat-containing inguinal hernias are seen. Bones: A few osteolytic foci are seen in the lower bony metastatic disease, similar to prior exam. IMPRESSION: 1. Left hydronephrosis is again seen despite presence of bilateral ureteral stents. Otherwise no acute abnormalities are seen. 2. Robbie hepatis and retroperitoneal lymphadenopathy are again seen. The dominant lymph node in the robbie hepatis is enlarged from prior exam. 3. Redemonstration of metastatic soft tissue implants and lucencies in the spine concerning for osteolytic metastatic disease. 4. Cirrhosis and mild ascites. 5. Trace bilateral pleural effusions. ACT 112: Negative or not required by law. Electronically signed by: Eugenio Mohr M.D. 04/24/2023 2:11 PM Medications Administered Home Medications Medication Instructions Recorded Confirmed Last Taken aspirin 81 mg chewable tablet 81 mg PO QAM 04/21/18 04/24/23 04/24/23 09:00 alirocumab 75 mg/mL subcutaneous 75 mg subcut UD 03/28/23 04/24/23 04/12/23 pen injector (Praluent Pen) atorvastatin 80 mg tablet 80 mg PO QAM 03/28/23 04/24/23 04/24/23 09:00 empagliflozin 10 mg tablet 10 mg PO QAM 03/28/23 04/24/23 04/24/23 09:00 (Jardiance) ezetimibe 10 mg tablet 10 mg PO QAM 03/28/23 04/24/23 04/24/23 09:00 metoprolol succinate 100 mg 100 mg PO QAM 03/28/23 04/24/23 04/24/23 09:00 tablet,extended release 24 hr sacubitril 24 mg-valsartan 26 mg 1 tab PO BID 03/28/23 04/24/23 04/24/23 09:00 tablet (Entresto) spironolactone 25 mg tablet 25 mg PO QAM 03/28/23 04/24/23 04/24/23 09:00 phenazopyridine 200 mg tablet 200 mg PO Q8H PRN pain #10 tabs 04/08/23 04/24/23 04/14/23 (Pyridium) tamsulosin 0.4 mg capsule 0.4 mg PO HS #30 caps 04/08/23 04/24/23 04/23/23 Saccharomyces boulardii 250 mg 250 mg PO BID #20 caps 04/14/23 04/24/23 04/24/23 09:00 capsule (Florastor) docusate sodium 100 mg capsule 100 mg PO BID PRN constipation #30 04/14/23 04/24/23 Unknown (Stool Softener) caps prochlorperazine maleate 10 mg 10 mg PO Q6 PRN Nausea 04/24/23 04/24/23 Unknown tablet Active Medications Generic Name Dose Route Start Last Admin Trade Name Freq PRN Reason Stop Dose Admin Docusate Sodium 100 mg 04/24/23 21:00 04/24/23 21:32 Docusate Sodium 100 Mg Cap PO 05/24/23 20:59 100 mg BID JORGE Administration Piperacillin Sod/Tazobactam 100 mls @ 25 mls/hr 04/24/23 19:00 04/24/23 20:08 Sod 4.5 gm/ Dextrose IV 04/26/23 18:59 25 mls/hr Q8H JORGE Administration Protocol Sodium Chloride 1,000 mls @ 83 mls/hr 04/24/23 19:29 04/24/23 20:09 1/2 Nss IV 05/24/23 19:28 83 mls/hr .[id number] JORGE Administration Phenazopyridine HCl 200 mg 04/24/23 20:36 04/24/23 21:32 Phenazopyridine Hcl 200 Mg Tab PO 04/27/23 08:00 200 mg TID PRN Administration Dysuria Saccharomyces Boulardii 250 mg 04/24/23 21:00 04/24/23 21:33 Saccharomyces Boulardii 250 Mg Cap PO 05/24/23 20:59 250 mg BID JORGE Administration Tamsulosin HCl 0.4 mg 04/24/23 21:00 04/24/23 21:33 Tamsulosin Hcl 0.4 Mg Cap PO 05/24/23 20:59 0.4 mg HS JORGE Administration Code Status & VTE Plan VTE Prophylaxis Plan VTE Prophylaxis will be ordered: Yes
[2023-04-24] MEDS ORDERED: SODIUM CHLORIDE 0.45 % 1,000 ML IV SCH (19:29)
[2023-04-24] MEDS: PIPERACILLIN/TAZOBACTAM 4.5 GM in DEXTROSE 5% MINI-B 100 ML IV SCH (20:08)
[2023-04-24] MEDS ORDERED: PHENAZOPYRIDINE HCL 200 MG TAB PO PRN (20:36)
[2023-04-24] MEDS: DOCUSATE SODIUM 100 MG CAP PO SCH (21:32)
[2023-04-24] MEDS: TAMSULOSIN HCL 0.4 MG CAP PO SCH (21:33)
[2023-04-24] MEDS: SACCHAROMYCES BOULARDII 250 MG CAP PO SCH (21:33)
[2023-04-24] MEDS ORDERED: HYDROmorphone INJ 0.5 MG/0.5 ML SYR IV PRN (22:58)
[2023-04-24] MEDS: SODIUM CHLORIDE 0.9% 1,000 ML IV SCH (23:31)
[2023-04-25] MEDS: PIPERACILLIN/TAZOBACTAM 4.5 GM in DEXTROSE 5% MINI-B 100 ML IV SCH ×3 (03:22→17:58)
[2023-04-25 06:23] LABS: Mean Corpuscular Hemoglobin 29.3 pg (25.0-34.0); Mean Corpuscular Hgb Conc 32.4 g/dL (32.0-36.0); Mean Corpuscular Volume 90.4 fL (80.0-100.0); Platelet Count 191 K/uL (130-400); RDW Coefficient of Variation 14.6 % (11.5-14.5); RDW Standard Deviation 47.8 fL (36.4-46.3); Red Blood Count 3.76 M/uL (4.70-6.10); White Blood Count 7.47 K/ul (4.8-10.8)
[2023-04-25 06:41] LABS: Albumin Globulin Ratio 1.1 (0.9-2); Albumin Level 2.9 gm/dl (3.4-5.0); BUN Creatinine Ratio 13.3 (10-20); Bilirubin,Total 3.9 mg/dl (0.2-1.0); Calcium 8.6 mg/dl (8.6-10.3); Creatinine Clr Calc Pharmacy 28.5 ml/min; Est GFR (African American) 30.8 ml/min; Est GFR (Non-African American) 26.6 ml/min; Globulin 2.6 gm/dl (2.5-4.0); Phosphorus 3.9 mg/dl (2.5-4.9); Potassium 4.7 mmol/L (3.5-5.1); Total Protein 5.5 gm/dl (6.0-8.3)
[2023-04-25 06:59] LABS: Ferritin 1238.7 ng/ml (8-388)
[2023-04-25] MEDS: HEPARIN SOD 5,000 UNIT/0.5 ML VIAL SQ SCH ×3 (07:26→22:09)
--- NOTE | 2023-04-25 08:32 | Consultation ---
Date of Consultation April 25, 2023 Assessment & Plan (1) Esophageal cancer: Hospitalist team seeks critical prognosis/treatment options review in this patient who has had significant deterioration of performance status overall. His care has been primarily conducted through the [facility] and [facility] teams and unfortunately we at [facility] have no prior familiarity or knowledge of his care and status. Given that the current review may have fundamental implications for the quality and quantity of his life, thar review and family discussion would be best conducted with the team with whom he has been working all along. I have suggested transfer to [facility] or at least involving the on-call [facility] team who has that familiarity to best help formulate parameters of care. Plan Hospitalist team to reach out to the [facility] team who is much more familiar with his case for critical decision-making History of Present Illness Reason for Consultation: Esophageal carcinoma with history of pheochromocytoma Attending Physician: Luis Alfredo Brooke MD Allergies Allergy/AdvReac Type Severity Reaction Status Date / Time codeine Allergy Unknown HIVES Verified 04/24/23 15:44 Home Medications Medication Instructions Recorded Confirmed Type aspirin 81 mg chewable tablet 81 mg PO QAM 04/21/18 04/24/23 History alirocumab 75 mg/mL subcutaneous 75 mg subcut UD 03/28/23 04/24/23 History pen injector (Praluent Pen) atorvastatin 80 mg tablet 80 mg PO QAM 03/28/23 04/24/23 History empagliflozin 10 mg tablet 10 mg PO QAM 03/28/23 04/24/23 History (Jardiance) ezetimibe 10 mg tablet 10 mg PO QAM 03/28/23 04/24/23 History metoprolol succinate 100 mg 100 mg PO QAM 03/28/23 04/24/23 History tablet,extended release 24 hr sacubitril 24 mg-valsartan 26 mg 1 tab PO BID 03/28/23 04/24/23 History tablet (Entresto) spironolactone 25 mg tablet 25 mg PO QAM 03/28/23 04/24/23 History phenazopyridine 200 mg tablet 200 mg PO Q8H PRN pain #10 tabs 04/08/23 04/24/23 Rx (Pyridium) tamsulosin 0.4 mg capsule 0.4 mg PO HS #30 caps 04/08/23 04/24/23 Rx Saccharomyces boulardii 250 mg 250 mg PO BID #20 caps 04/14/23 04/24/23 Rx capsule (Florastor) docusate sodium 100 mg capsule 100 mg PO BID PRN constipation #30 04/14/23 04/24/23 Rx (Stool Softener) caps prochlorperazine maleate 10 mg 10 mg PO Q6 PRN Nausea 04/24/23 04/24/23 History tablet Patient History Medical History Bone lesion to have bone biopsies done in the near future - possible metastatic. CAD (coronary artery disease) LEXA X 1 TO LAD (02/05/18), multivessel CAD with stable class 1-2 angina pectoris per [facility] cardio records Congestive heart failure treated with entresto and jardiance. follows with Dr Jaramillo - Jovita pate. Esophageal cancer currently being treated with chemotherapy [id number]. dx earlier in 2022. following with Oncology [facility] valerio hair. GIST, non-malignant History of malignant neoplasm of bladder secondary cancer in 2019 History of pheochromocytoma s/p adrenalectomy 02/2012 History of prostate cancer S/P PROSTATECTOMY Hx of myocardial infarction 2018 - SEE ABDIONA HAD 1 STENT Hyperlipidemia Hypertension Inguinal hernia currently on the right inguinal Maintenance chemotherapy receiving Keytruda [id number]. Port-A-Cath in place Keytruda treatments [id number]. last treatment 03/30/23. 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 patient has ongoing chemotherapy treatments every 6 weeks Traumatic leg injury ~1974 traumatic accident. extensive right leg partial amputation that was able to be repaired and reattached with extensive grafts. Surgical History H/O transurethral resection of bladder tumor (TURBT) History of biopsy of bladder hx bladder cancer. History of cholecystectomy History of cystoscopy History of esophagogastroduodenoscopy (EGD) Hx of cardiac cath LEXA X 1 TO LAD (02/05/18) Hx of colonoscopy Hx of foot surgery RLE AND SKIN GRAFTS-- MULTIPLE REVISIONS; SUBSEQUENT RLE LIMB DEFORMITY (2/2 TRAUMA)-- ABLE TO AMBULATE WITHOUT ASSISTANCE Hx of prostatectomy Family History Mother Family history of diabetes mellitus Other No family history of adverse response to anesthesia Social History Smoking Status: Former smoker Tobacco Type: Cigarettes and Smokeless Tobacco (Dip or Chew) Cigarettes Per Day: DECEMBER 2017; 1PPD X 30 YEARS; Second Hand Exposure: No; Do You Dip or Chew Tobacco: No; Tobacco Cessation Education Requested by Patient: No Hx Alcohol Use: Yes (patient quit 6 years agon) Alcohol type: hard liquor Hx Substance Use: No Preferred Language: French Communication Ability: Effective Visual Impairment: No Limitations Senior Planning Manager Required: No Beliefs That Will Affect Care: None Current Living Situation: Spouse Current Living Situation Comment: patient feels safe Other Information That Helps Us Care for You: No Feels Safe at Home: Yes Safety Concerns: Feels Safe At This Time Assistive Devices: None Results & Data Vital Signs (Past 12 Hours) Vital Signs Temp Pulse Resp BP BP Pulse Ox O2 Del Method 04/25/23 08:28 36.4 C L 101 H 18 88/60 L 94 Room Air 04/25/23 08:01 Room Air 04/25/23 04:00 36.8 C 93 H 19 86/57 L 91 Room Air 04/24/23 23:24 36.6 C 92 H 18 89/54 L 97 Room Air PG Care Time/CCT Total # of Minutes Spent Total Time Spent with Patient: Total time spent is greater than 50% in coordination of care (as documented) at patient's floor/unit and/or counseling patient: Coding Level of Care Code None Diagnoses Esophageal cancer C15.9
[2023-04-25] MEDS ORDERED: ATORVASTATIN 40 MG TAB PO SCH (09:00)
--- NOTE | 2023-04-25 09:49 | Communication Note ---
Date of Service: April 25, 2023 Attempted to see patient. This man has a lot going on with him and neither he nor his know exactly where his problems stand other than his esophageal cancer is really aggressive. I agree with oncology that he would best be served by transfer to [facility] where his care has been coordinated. If that is unable to be done I am going to let the [facility] GI team see him tomorrow since they have access to records.
[2023-04-25] MEDS: HYDROmorphone INJ 0.5 MG/0.5 ML SYR IV PRN ×3 (10:02→22:13)
[2023-04-25] MEDS: SODIUM CHLORIDE 0.9% 1,000 ML IV SCH (10:02)
[2023-04-25] MEDS: ONDANSETRON INJ 2 MG/ML 2 ML VIAL IV PRN (10:07)
[2023-04-25] MEDS: SACCHAROMYCES BOULARDII 250 MG CAP PO SCH ×2 (10:26→19:53)
[2023-04-25] MEDS: DOCUSATE SODIUM 100 MG CAP PO SCH ×2 (10:26→19:53)
[2023-04-25] MEDS: EZETIMIBE 10 MG TAB PO SCH (10:27)
--- NOTE | 2023-04-25 11:22 | Hospitalist Progress Note ---
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 Family and patient requesting all options pursued at this point. Effort made to elucidate underlying source may be related to malignancy and that aggressive measures may not be available at this stage. However it would be prudent to rule out infectious etiologies and other manageable options at this time. Adenocarcinoma of lower third of esophagus Dysphagia #Mild ascites #Elevated LFTs -Reports dysphagia for several weeks -Liver US to assess vasculature given cirrhotic appearance but no duct involvement -Trend LFTs, plus acute hepatitis panel As per chart review, patient's last endoscopy was in March 2022; found to have medium size, ulcerating mass with no bleeding and stigmata of recent bleeding. Appreciate [facility]'s input as patient complains of dysphagia; will place him n.p.o. from midnight for any possible procedure #Sepsis of unclear etiology -No clear infectious source, likely suspect malignancy related decompensation; however, given acute illness, +procal, and potential for infection, would be prudent to empirically cover will work up ensues Chest x-ray personally reviewed; no infiltrates. CT abdomen and pelvisno evidence of infection/abscess Urine culture pending Blood culture pending Continue on empiric Zosyn for now. DC antibiotic after blood cultures are negative On IV fluid with NS of 60 cc/h #Acute SHANE #Left hydronephrosis s/p bilateral ureteral stent placement -Stents placed 04/[address] hillman; potentially multifactial, obstructive 2/2 ?malignant process and prerenal given poor intake/ hypotension CT abdomen and pelvis shows persistent left-sided hydronephrosis despite presence of bilateral ureteral stents. Baseline creatinine of 1.0 on outpatient lab work from 04/07. Creatinine uptrending to 2.48. Continue IV hydration for now. Appreciate urology input. #Chronic HFmrEF (42% 11/2022) 2/2 ICM s/pt LEXA to the mid LAD #Prior STEMI -Continue Aspirin 81mg daily, continue zetia 10mg -Hold Atorvastatin 80mg daily, praulent 2/2 LFT elevations -Hold Spironolactone 25mg, Jardiance 10mg, and Entresto 2/2 SHANE and hypotension -Hold Metoprolol 100mg daily 2/2 hypotension -Resume above as able -Monitor on telemetry -Strict I/Os monitor respiratory status 2/2 aggressive fluid resuscitation #Metastatic adenocarcinoma 1/3 of esophagus #Prior GIST tumor s/p resection of small bowel #Urothelial cell carcinoma -He completed 12 cycles of FOLFOX plus Keytruda treatment; Herceptin was discontinued because of the decreasing ejection fraction -Recent PET with notable increased hypermetabolic areas, including diffuse bone involvement and involvement of nodes around liver confluence -Patient has appointment tomorrow which will need to be rescheduled for later in the week. #Uncontrolled HLD -Home regimen: Lipitor 80 mg daily and Zetia 10 mg daily and Praluent, started 02/26/23 -Hold praluent and statin 2/2 lfts DVT heparin Bowel regimen colace bid mirlax daily Zofran prn Lytes:replace prn Goals of care discussion; discussed with patient and patient's at bedside about patient's overall condition. He appears to be in significant discomfort due to abdominal pain. He has progressive SHANE; diffuse metastatic disease and has overall poor prognosis. The goal for the hospitalization is to treat underlying SHANE, possible GI intervention for dysphagia. She was open to having palliative care discussion with palliative care team regarding goals of care. We will also appreciate input from palliative care regarding pain management. Time spent evaluating patient, direct bedside care, chart review, placing orders, interpretation of diagnostic studies, discussion with consultants, patient, and family members, as well as other required patient management activities is 60 minutes Please note the above document was generated using voice recognition software. It may contain grammatical, syntax or spelling errors. Any formal questions or concerns about the content, text or information contained within the body of this dictation should be directly addressed to the provider for clarification Admission and Anticipated Discharge Date Admission Date: April 24, 2023 Subjective Patient seen and examined at bedside. He reports of diffuse abdominal pain and discomfort. Reports that his bowel movement was last evening. Review of Systems Review of Systems: All systems reviewed & are unremarkable except as noted in Subjective Physical Exam Physical Exam: GENERAL APPEARANCE: AxOx4, unwell NECK: Supple without lymphadenopathy. No stiffness or restricted ROM. HEART: Normal rate and regular rhythm, normal S1/S1, no m/r/g LUNGS: CTAB, moving air well. No crackles or wheezes are heard. ABDOMEN: Distended, firm. Hepatomegaly present. Bowel sound present. EXTREMITIES: Without cyanosis, clubbing or edema. NEUROLOGICAL: Grossly nonfocal. Alert and oriented, moving all 4 extremities. CN not formally tested but appear grossly intact Results & Data Results & Data Vital Signs (Past 12 Hours) Vital Signs Temp Pulse Pulse Resp BP BP Pulse Ox 04/25/23 08:35 94 H 04/25/23 08:28 36.4 C L 101 H 18 88/60 L 94 04/25/23 08:01 04/25/23 04:00 36.8 C 93 H 19 86/57 L 91 04/24/23 23:24 36.6 C 92 H 18 89/54 L 97 O2 Del Method 04/25/23 08:35 04/25/23 08:28 Room Air 04/25/23 08:01 Room Air 04/25/23 04:00 Room Air 04/24/23 23:24 Room Air Laboratory Results Laboratory Results WBC 7.47 K/ul (4.8-10.8) 04/25/23 05:58 RBC 3.76 M/uL (4.70-6.10) L 04/25/23 05:58 Hgb 11.0 g/dl (14.0-18.0) L 04/25/23 05:58 POC Hgb 10.2 g/dl (14.0-18.0) L 04/24/23 12:24 Hct 34.0 % (42.0-52.0) L 04/25/23 05:58 POC Hct 30 % (42-52) L 04/24/23 12:24 MCV 90.4 fL (80.0-100.0) 04/25/23 05:58 MCH 29.3 pg (25.0-34.0) 04/25/23 05:58 MCHC 32.4 g/dL (32.0-36.0) 04/25/23 05:58 RDW Std Deviation 47.8 fL (36.4-46.3) H 04/25/23 05:58 RDW Coeff of Misael 14.6 % (11.5-14.5) H 04/25/23 05:58 Plt Count 191 K/uL (130-400) 04/25/23 05:58 MPV 11.0 fL (9.4-12.4) 04/25/23 05:58 Immature Gran % (Auto) 1.2 % 04/24/23 12:14 Neut % (Auto) 80.5 % 04/24/23 12:14 Lymph % (Auto) 7.2 % 04/24/23 12:14 [place] % (Auto) 7.4 % 04/24/23 12:14 Eos % (Auto) 2.6 % 04/24/23 12:14 Baso % (Auto) 1.1 % 04/24/23 12:14 Neut # (Auto) 6.90 K/uL (1.40-6.50) H 04/24/23 12:14 Lymph # (Auto) 0.62 K/uL (1.20-3.40) L 04/24/23 12:14 [place] # (Auto) 0.63 K/uL (0.11-0.59) H 04/24/23 12:14 Eos # (Auto) 0.22 K/uL (0.00-0.50) 04/24/23 12:14 Baso # (Auto) 0.09 K/uL (0.00-0.20) 04/24/23 12:14 Immature Gran # (Auto) 0.10 K/uL (0.01-0.20) 04/24/23 12:14 PT 10.4 Seconds (9.0-12.0) 04/24/23 12:14 INR 0.9 (0.9-1.1) 04/24/23 12:14 POC Sodium 141 mmol/L (135-144) 04/24/23 12:24 Sodium 139 mmol/L (136-145) 04/25/23 05:58 POC Potassium 3.9 mmol/L (3.3-5.0) 04/24/23 12:24 Potassium 4.7 mmol/L (3.5-5.1) 04/25/23 05:58 POC Chloride 109 mmol/L (101-112) 04/24/23 12:24 Chloride 106 mmol/L (98-107) 04/25/23 05:58 Carbon Dioxide 23 mmol/L (21-32) 04/25/23 05:58 POC Total CO2 18 mmol/L (24-31) L 04/24/23 12:24 Anion Gap 10 (3-11) 04/25/23 05:58 POC Anion Gap 18.0 mmol/L (16-25) 04/24/23 12:24 POC BUN 28 mg/dl (7-18) H 04/24/23 12:24 BUN 33 mg/dl (6-23) H 04/25/23 05:58 Creatinine 2.48 mg/dl (0.6-1.4) H 04/25/23 05:58 POC Creatinine 1.9 mg/dl (0.6-1.3) H 04/24/23 12:24 Est Cr Clr Drug Dosing 28.5 ml/min 04/25/23 05:58 Est GFR ( Amer) 30.8 ml/min 04/25/23 05:58 Est GFR (Non-Af Amer) 26.6 ml/min 04/25/23 05:58 BUN/Creatinine Ratio 13.3 (10-20) 04/25/23 05:58 Glucose 91 mg/dl (70-99(Fasting)) 04/25/23 05:58 POC Glucose (other) 86 mg/dl (70-99) 04/24/23 12:24 Lactate 1.6 mmol/L (0.4-2.0) 04/24/23 12:14 Calcium 8.6 mg/dl (8.6-10.3) 04/25/23 05:58 POC Ioniz Calcium Michelle 1.01 mmol/l (1.12-1.32) L 04/24/23 12:24 Phosphorus 3.9 mg/dl (2.5-4.9) 04/25/23 05:58 Magnesium 2.0 mg/dl (1.7-2.4) 04/25/23 05:58 Iron 43 mcg/dl (35-175) 04/25/23 05:58 Unsaturated IBC 114 mcg/dl (155-355) L 04/25/23 05:58 Transferrin 118 mg/dl (200-360) L 04/25/23 05:58 Ferritin 1238.7 ng/ml (8-388) H 04/25/23 05:58 Total Bilirubin 3.9 mg/dl (0.2-1.0) H 04/25/23 05:58 AST 425 U/L (13-39) H 04/25/23 05:58 ALT 404 U/L (7-52) H 04/25/23 05:58 Alkaline Phosphatase 1402 U/L (34-104) H 04/25/23 05:58 Total Creatine Kinase 28 U/L (30-223) L 04/25/23 05:58 Troponin I High Sens 11.7 pg/ml (0-20) 04/24/23 12:14 Total Protein 5.5 gm/dl (6.0-8.3) L 04/25/23 05:58 Albumin 2.9 gm/dl (3.4-5.0) L 04/25/23 05:58 Globulin 2.6 gm/dl (2.5-4.0) 04/25/23 05:58 Albumin/Globulin Ratio 1.1 (0.9-2) 04/25/23 05:58 Cholesterol 130 mg/dl (0-200) 04/25/23 05:58 Amylase 64 U/L (25-115) 04/25/23 05:58 Lipase 132 U/L (11-82) H 04/25/23 05:58 Procalcitonin 0.65 ng/ml (0-0.5) H 04/24/23 12:14 TSH 4.306 uIu/ml (0.300-4.500) 04/24/23 12:14 Urine Color Mineral 04/24/23 12:37 Urine Appearance Cloudy (Clear) A 04/24/23 12:37 Urine pH (4.5-7.5) 04/24/23 12:37 Ur Specific [place] 1.024 (1.000-1.030) 04/24/23 12:37 Urine Protein (Negative) 04/24/23 12:37 Urine Glucose (UA) (Negative) 04/24/23 12:37 Urine Ketones (Negative) 04/24/23 12:37 Urine Blood (Negative) 04/24/23 12:37 Urine Nitrite (Negative) 04/24/23 12:37 Urine Bilirubin (Negative) 04/24/23 12:37 Urine Urobilinogen (Negative) 04/24/23 12:37 Ur Leukocyte Esterase (Negative) 04/24/23 12:37 Urine RBC >30 /hpf (0-4) H 04/24/23 12:37 Urine WBC >30 /hpf (0-5) H 04/24/23 12:37 Ur Epithelial Cells >30 /lpf (0-5) H 04/24/23 12:37 Urine Bacteria 2+ (Negative) H 04/24/23 12:37 Acetaminophen < 3 ug/ml (10-30) L 04/25/23 05:58 SARS-CoV-2, RNA, NAAT NEGATIVE (NEGATIVE) 04/24/23 Unknown Blood Type O Positive 04/24/23 12:14 Antibody Screen NEGATIVE 04/24/23 12:14 Impressions Chest X-Ray 04/24/23 12:06 XR chest 1V portable CLINICAL HISTORY: weakness TECHNIQUE: Single frontal radiograph of the chest was obtained. Comparison: Comparison is made to chest radiograph 04/14/2023 FINDINGS: A port catheter is seen. The cardiomediastinal silhouette is normal. Mild pe rihilar opacities are seen, right greater than left. Minimal emphysematous changes are seen. No evidence of pleural effusion or pneumothorax. IMPRESSION: Mild pulmonary edema. Right greater than left perihilar opacities may reflect atelectasis, less likely viral pneumonia. ACT 112: Negative or not required by law. Electronically signed by: Eugenio Mohr M.D. 04/24/2023 12:46 PM Abdomen/Pelvis CT 04/24/23 12:27 CT abd pelvis wo con CLINICAL HISTORY: kidney pain, SHANE, cancer stents TECHNIQUE: Helical axial images of the abdomen and pelvis were obtained. Automated dose lowering techniques and/or adjustment according to patient size were utilized for this exam. This exam was performed without intravenous contrast. CT DOSE: 1209.53 mGy.cm COMPARISON: Comparison is made to CT abdomen pelvis 04/14/2023 FINDINGS: Lower chest: Small bilateral pleural effusions are seen with underlying atelectasis. Partial visualization of thoracic lymphadenopathy. Liver: Periportal edema is seen. Nodular contour of the liver is compatible with cirrhosis. Gallbladder and biliary tree: Patient is status post cholecystectomy. No intra- or extrahepatic biliary ductal dilation. Pancreas: Unremarkable, no focal lesions. Spleen: Unremarkable. Adrenals: Unremarkable. Kidneys and ureters: Bilateral nephroureteral stents are seen. Left hydronephr osis is seen. Irregular soft tissue about the left ureter is again noted. Bladder: Limited evaluation due to underdistention. Reproductive organs: Unremarkable. Bowel: A hiatal hernia is seen. Lymph nodes Retroperitoneal: A robbie hepatis lymph node measures 35 mm in short axis, increased from prior. Additional retroperitoneal lymphadenopathy is seen. Pelvic: Unremarkable. Mesenteric: Unremarkable. Peritoneum: Redemonstration of peritoneal deposits most prominent in the right upper quadrant. Mild ascites is seen. Vessels: Atherosclerotic calcifications are seen. Abdominal wall: Bilateral fat-containing inguinal hernias are seen. Bones: A few osteolytic foci are seen in the lower bony metastatic disease, similar to prior exam. IMPRESSION: 1. Left hydronephrosis is again seen despite presence of bilateral ureteral stents. Otherwise no acute abnormalities are seen. 2. Robbie hepatis and retroperitoneal lymphadenopathy are again seen. The dominant lymph node in the robbie hepatis is enlarged from prior exam. 3. Redemonstration of metastatic soft tissue implants and lucencies in the spine concerning for osteolytic metastatic disease. 4. Cirrhosis and mild ascites. 5. Trace bilateral pleural effusions. ACT 112: Negative or not required by law. Electronically signed by: Eugenio Mohr M.D. 04/24/2023 2:11 PM
--- NOTE | 2023-04-25 11:25 | Urology Consultation ---
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 Patient had previously followed with Dr. Fransisco Mcbride a number of years ago. Had subsequently developed an esophageal cancer and a majority of his issues have been largely related to this. Doing the management of the metastatic esophageal cancer patient had been found to have worsening hydronephrosis as well as concerns for possible obstruction. There was concern that there was possibly reoccurrence of his previous malignancy. Patient underwent full assessment. No signs of active malignancy within the system however multiple signs of external compression and possible narrowing due to mass effect from the abdomen versus fluid versus other issues. Patient had bilateral stents placed. Has been dealing with blood in the urine as well as urgency frequency and ill feelings after stent placement. More concerning patient developed worsening chest pain discomfort overall malaise and ill feelings. Patient has significant metastatic disease from the esophageal cancer. There is a major concern for development of PE or other major issue. Also appears that his metastatic disease to the bone has gotten drastically worse. Alk phos levels are elevated. Patient's labs and vitals were all reviewed. Values in the HPI of plan section. White count is currently 7.47. Creatinine is elevated at 2.48. Patient's other labs were also reviewed has an elevated liver function as well as elevated alk phos. this is gone up to 1402. Hemoglobin was stable at 11. Patient's vitals do have signs of hypotension. Blood pressure this morning was 88/60. Pulse was 94. Temp has been monitored as well currently afebrile with temp of 36.4. Patient was satting 93% on room air. Patient's complicated medical and surgical history was all reviewed and summarized as above. Imaging which was recently assessed was reviewed by myself. Current imaging is showing persistence of hydronephrosis with stent in place. Stents do appear to be in good position. There does appear to be a large amount of inflammation especially on the left possibly related to infection or inflammation. Left side was the more obstructed side. Patient is improved after changing of some of the medications. He is still feeling ill however and is very weak. Does a majority of his oncologic care through [facility]. We will defer to oncology as well as the primary team for discussion about different options for management. Concern is the significant progression of disease. Especially concern for development of worsening issues with bony metastasis. Alk phos levels are notably elevated and would be concern for progression of disease. May be contributing to his overall significant ill feelings and overall issues related to back flank and chest pain. Agree with plans for maintaining stents as well as would also consider possible catheter placement due to worsening renal function. May benefit from improved drainage of the bladder with the stents in place. Would be reasonable to monitor for now. Patient is undergoing hydration. We will plan to continue to follow moving forward. Patient complicated medical and surgical history is reviewed and summarized above all imaging was reviewed interpreted by myself with information as above. All labs and vitals were reviewed pertinent values in the HPI of plan section. We will plan to monitor with plans to reevaluate if patient develops worsening issues related to urinary system at this point would agree with plans for supportive care hydration and monitoring as his other more significant cardiac and oncologic issues are further managed. History of Present Illness Attending Physician: Luis Alfredo Brooke MD History of Present Illness New consultation for patient with known history of upper tract UCC status post ablation and treatment by Dr. Mcbride number years ago. Patient was reevaluated due to worsening signs on imaging. In the meantime patient had been diagnosed with an esophageal cancer with metastatic disease. Patient has been following at [facility]. Patient was reevaluated with cystoscopy and bilateral ureteroscopy in order to assess for possible reoccurrence of the previous malignancy as well as to assess a possible block causes of blockages. Findings on scope had been largely signs of external compression possibly from mass effect or scarring. Would be most consistent with possibly the metastatic esophageal cancer. Patient after procedure had been dealing with significant issues related to back and chest pain. Had been worsening. Had discussed with office a few times and had recommended evaluation due to concerns with his known malignancy in the upper body that there would be a risk for things such as pulmonary embolism and other major issues. Patient has been dealing with lower urinary tract symptoms. Does appear to have some degree of mild UTI versus inflammation from previous procedure. Patient has been dealing with ongoing issues with abdominal and flank and as well as back and chest pain, discomfort, and ill feelings. Can be severe at times. Patient was admitted and is undergoing observation with broad spectrum IV antibiotics. Patient has improved since the utilization of an improved pain medication control. Overall this morning he feels like he is feeling better. Still has been dealing with concerns related to possible worsening infection. Allergies Allergy/AdvReac Type Severity Reaction Status Date / Time codeine Allergy Unknown HIVES Verified 04/24/23 15:44 Home Medications Medication Instructions Recorded Confirmed Type aspirin 81 mg chewable tablet 81 mg PO QAM 04/21/18 04/24/23 History alirocumab 75 mg/mL subcutaneous 75 mg subcut UD 03/28/23 04/24/23 History pen injector (Praluent Pen) atorvastatin 80 mg tablet 80 mg PO QAM 03/28/23 04/24/23 History empagliflozin 10 mg tablet 10 mg PO QAM 03/28/23 04/24/23 History (Jardiance) ezetimibe 10 mg tablet 10 mg PO QAM 03/28/23 04/24/23 History metoprolol succinate 100 mg 100 mg PO QAM 03/28/23 04/24/23 History tablet,extended release 24 hr sacubitril 24 mg-valsartan 26 mg 1 tab PO BID 03/28/23 04/24/23 History tablet (Entresto) spironolactone 25 mg tablet 25 mg PO QAM 03/28/23 04/24/23 History phenazopyridine 200 mg tablet 200 mg PO Q8H PRN pain #10 tabs 04/08/23 04/24/23 Rx (Pyridium) tamsulosin 0.4 mg capsule 0.4 mg PO HS #30 caps 04/08/23 04/24/23 Rx Saccharomyces boulardii 250 mg 250 mg PO BID #20 caps 04/14/23 04/24/23 Rx capsule (Florastor) docusate sodium 100 mg capsule 100 mg PO BID PRN constipation #30 04/14/23 04/24/23 Rx (Stool Softener) caps prochlorperazine maleate 10 mg 10 mg PO Q6 PRN Nausea 04/24/23 04/24/23 History tablet Patient History Medical History Bone lesion to have bone biopsies done in the near future - possible metastatic. CAD (coronary artery disease) LEXA X 1 TO LAD (02/05/18), multivessel CAD with stable class 1-2 angina pector is per [facility] cardio records Congestive heart failure treated with entresto and jardiance. follows with Dr Jaramillo - DIMAS pate. Esophageal cancer currently being treated with chemotherapy [id number]. dx earlier in 2022. following with Oncology [facility] valerio hair. GIST, non-malignant History of malignant neoplasm of bladder secondary cancer in 2019 History of pheochromocytoma s/p adrenalectomy 02/2012 History of prostate cancer S/P PROSTATECTOMY Hx of myocardial infarction 2018 - SEE DIAMOND HAD 1 STENT Hyperlipidemia Hypertension Inguinal hernia currently on the right inguinal Maintenance chemotherapy receiving Keytruda [id number]. Port-A-Cath in place Keytruda treatments [id number]. last treatment 03/30/23. 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 patient has ongoing chemotherapy treatments every 6 weeks Traumatic leg injury ~1975 traumatic accident. extensive right leg partial amputation that was able to be repaired and reattached with extensive grafts. Surgical History H/O transurethral resection of bladder tumor (TURBT) History of biopsy of bladder hx bladder cancer. History of cholecystectomy History of cystoscopy History of esophagogastroduodenoscopy (EGD) Hx of cardiac cath LEXA X 1 TO LAD (02/05/18) Hx of colonoscopy Hx of foot surgery RLE AND SKIN GRAFTS-- MULTIPLE REVISIONS; SUBSEQUENT RLE LIMB DEFORMITY (2/2 TRAUMA)-- ABLE TO AMBULATE WITHOUT ASSISTANCE Hx of prostatectomy Family History Mother Family history of diabetes mellitus Other No family history of adverse response to anesthesia Social History Smoking Status: Former smoker Tobacco Type: Cigarettes and Smokeless Tobacco (Dip or Chew) Cigarettes Per Day: DECEMBER 2017; 1PPD X 30 YEARS; Second Hand Exposure: No; Do You Dip or Chew Tobacco: No; Tobacco Cessation Education Requested by Patient: No Hx Alcohol Use: Yes (patient quit 6 years agon) Alcohol type: hard liquor Hx Substance Use: No Preferred Language: Kyrgyz Communication Ability: Effective Visual Impairment: No Limitations Design Painter Required: No Beliefs That Will Affect Care: None Current Living Situation: Spouse Current Living Situation Comment: patient feels safe Other Information That Helps Us Care for You: No Feels Safe at Home: Yes Safety Concerns: Feels Safe At This Time Assistive Devices: None Review of Systems Review of Systems: All systems reviewed & are unremarkable except as noted in HPI & below Physical Exam Physical Exam: General: Alert and oriented x 3 in no acute distress. Cachectic. HEENT: Normocephalic Atraumatic. Inspection normal. Cranial Nerves 2-12 Grossly intact. Nares are clear. Neck is supple. Normal inspection of face. Normal inspection of neck. Neurologic: No deficits on inspection. Baseline for motor function and sensory. Psychologic: Normal affect. Respiratory: Nonlabored. No use of accessory muscles. No tachypnea or dyspnea. Cardiovascular: No tachycardia Skin: [place] and Dry. No rashes or visible lesions. Extremities: Moving without issues. No motor deficits on inspection Lymphatics: No edema Abdomen: Moderately distended. No rebound or guarding. Results & Data Vital Signs (Past 12 Hours) Vital Signs Temp Pulse Pulse Resp BP BP Pulse Ox 04/25/23 08:35 94 H 04/25/23 08:28 36.4 C L 101 H 18 88/60 L 94 04/25/23 08:01 04/25/23 04:00 36.8 C 93 H 19 86/57 L 91 04/24/23 23:24 36.6 C 92 H 18 89/54 L 97 O2 Del Method 04/25/23 08:35 04/25/23 08:28 Room Air 04/25/23 08:01 Room Air 04/25/23 04:00 Room Air 04/24/23 23:24 Room Air PG Care Time/CCT Total # of Minutes Spent Total Time Spent with Patient: Total time spent is greater than 50% in coordination of care (as documented) at patient's floor/unit and/or counseling patient: Coding Level of Care Code 75706 IN/OBS CONSULT LVL 5,80M Diagnoses Esophageal cancer C15.9 Elevated LFTs R79.89 Ureteral stent present Z96.0 Metastatic disease C79.9 UTI (urinary tract infection) N39.0 Gross hematuria R31.0 Hydronephrosis N13.30 Bone lesion M89.9 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
[2023-04-25] MEDS: POLYETHYLENE (MIRALAX) 17 GM PACK PO SCH (11:35)
[2023-04-25] MEDS: TAMSULOSIN HCL 0.4 MG CAP PO SCH (19:53)
[2023-04-26] MEDS: SODIUM CHLORIDE 0.9% 1,000 ML IV SCH ×4 (03:23→13:44)
[2023-04-26] MEDS: PIPERACILLIN/TAZOBACTAM 4.5 GM in DEXTROSE 5% MINI-B 100 ML IV SCH ×2 (03:23→10:50)
[2023-04-26 07:28] LABS: Basophils # (auto) 0.07 K/uL (0.00-0.20); Eosinophils # (auto) 0.12 K/uL (0.00-0.50); Eosinophils % (auto) 1.7 %; Hematocrit (blood only) 33.9 % (42.0-52.0); Hemoglobin 10.9 g/dl (14.0-18.0); Immature Granulocytes # (auto) 0.07 K/uL (0.01-0.20); Lymphocytes # (auto) 0.32 K/uL (1.20-3.40); Lymphocytes % (auto) 4.5 %; Mean Corpuscular Hemoglobin 29.1 pg (25.0-34.0); Mean Corpuscular Hgb Conc 32.2 g/dL (32.0-36.0); Mean Corpuscular Volume 90.6 fL (80.0-100.0); Mean Platelet Volume 11.2 fL (9.4-12.4); Monocytes # (auto) 0.47 K/uL (0.11-0.59); Monocytes % (auto) 6.6 %; Neutrophils % (auto) 85.2 %; Platelet Count 216 K/uL (130-400); RDW Coefficient of Variation 14.7 % (11.5-14.5); RDW Standard Deviation 48.3 fL (36.4-46.3); Red Blood Count 3.74 M/uL (4.70-6.10); White Blood Count 7.15 K/ul (4.8-10.8)
[2023-04-26 07:33] LABS: Albumin Globulin Ratio 1.1 (0.9-2); Albumin Level 2.8 gm/dl (3.4-5.0); BUN Creatinine Ratio 12.1 (10-20); Bilirubin,Total 4.6 mg/dl (0.2-1.0); Calcium 8.7 mg/dl (8.6-10.3); Creatinine Clr Calc Pharmacy 25.2 ml/min; Est GFR (African American) 26.5 ml/min; Est GFR (Non-African American) 22.9 ml/min; Globulin 2.6 gm/dl (2.5-4.0); Potassium 4.7 mmol/L (3.5-5.1); Total Protein 5.4 gm/dl (6.0-8.3)
[2023-04-26] MEDS: HEPARIN SOD 5,000 UNIT/0.5 ML VIAL SQ SCH ×2 (07:37→13:36)
[2023-04-26] MEDS: HYDROmorphone INJ 0.5 MG/0.5 ML SYR IV PRN ×3 (07:41→17:26)
--- NOTE | 2023-04-26 09:03 | Gastrointestinal Consultation ---
Date of Consultation April 26, 2023 Assessment & Plan (1) Elevated LFTs: Plan 63 year old male with history of dyslipidemia, CAD s/p LEXA LAD, invasive esophageal adenocarcinoma on Keytruda, prior right adrenal gland adrenalectomy 2/2 pheochromocytoma, multiple GIST tumors s/p small bowel resection, urothelial carcinoma s/ bladder resection, hydronephrosis s/p bilateral ureteral stents w/ elevated LFTs. DDX discussed including: DILI, obstruction, infectious, malignancy vs others Follow up CMV, EBV and acute hepatitis panel Low NA diet Less than 2G of tylenol containing products if using No ETOH Can continue analgesia PRN Antiemetics PRN No plan for EGD/Colonoscopy Will discuss additional imaging with attending. Thank you for allowing us to participate in the care of this patient. Please call with any acute changes, questions or concerns. Please see addendum below w ith additional recommendation from my supervising physician. Supervising Physician Co-Signing Physician Notes I have personally seen and examined the patient with DONTAE Simmons. Her note reflects my exam and findings. I agree with her impression and plan. Elevated liver enzymes most likely multifactorial (sepsis, polypharmacy, mass effect). Enzymes are improving though. Check viral serologies. Sahil Palencia M.D. History of Present Illness Attending Physician: Luis Alfredo Brooke MD History of Present Illness 63 year old male with history of dyslipidemia, CAD s/p LEXA LAD, invasive esophageal adenocarcinoma on Keytruda, prior right adrenal gland adrenalectomy 2/2 pheochromocytoma, multiple GIST tumors s/p small bowel resection, urothelial carcinoma s/ bladder resection, hydronephrosis s/p bilateral ureteral stents admitted through the ED w/ weakness, [facility] was asked to evaluate for elevated LFTs. Pt was seen and evaluated, chart reviewed. He was resting prior to me entering his room. Family at bedside. Suggests he had some pain medication an hour or so ago and is currently feeling well. Denies abd pain. No nausea, vomiting. He does report chronic decreased appetite and solids dysphagia. No GERD. Denies black or bloody stools. No report of diarrhea/constipation. I was unable to access [facility] records over the phone but was able to call nursing staff to get a verbal report of recent PET CT, EGD/EUS in 2021 and colonoscopy in 2011. These are copied below. PET CT 2022: new lymph nodes and metastatic EUS 2021: for staging of esophageal CA EGD 2021: food in esophagus, GEJ tumor Colon 2011: polyps WBC 7, HGB 11, HCT 33, PLT 216, INR 0.9, BUN 34, [employer] 2.81, Tbili 4.6, AST 283, ALT 319, ALKP 1271, lipase 132 Tylenol level less than 3 CMV pending EBV pending Acute hepatitis panel pending COVID-19 negative CTAP 2022: Liver: Periportal edema is seen. Nodular contour of the liver is compatible with cirrhosis. Gallbladder and biliary tree: Patient is status post cholecystectomy. No intra- or extrahepatic biliary ductal dilation. Pancreas: Unremarkable, no focal lesions. Bowel: A hiatal hernia is seen. Lymph nodes Retroperitoneal: A robbie hepatis lymph node measures 35 mm in short axis, increased from prior. Additional retroperitoneal lymphadenopathy is seen.Peritoneum: Redemonstration of peritoneal deposits most prominent in the right upper quadrant. Mild ascites is seen. Allergies Allergy/AdvReac Type Severity Reaction Status Date / Time codeine Allergy Unknown HIVES Verified 04/24/23 15:44 Home Medications Medication Instructions Recorded Confirmed Type aspirin 81 mg chewable tablet 81 mg PO QA 04/21/18 04/24/23 History alirocumab 75 mg/mL subcutaneous 75 mg subcut UD 03/28/23 04/24/23 History pen injector (Praluent Pen) atorvastatin 80 mg tablet 80 mg PO QAM 03/28/23 04/24/23 History empagliflozin 10 mg tablet 10 mg PO QAM 03/28/23 04/24/23 History (Jardiance) ezetimibe 10 mg tablet 10 mg PO QAM 03/28/23 04/24/23 History metoprolol succinate 100 mg 100 mg PO QAM 03/28/23 04/24/23 History tablet,extended release 24 hr sacubitril 24 mg-valsartan 26 mg 1 tab PO BID 03/28/23 04/24/23 History tablet (Entresto) spironolactone 25 mg tablet 25 mg PO QAM 03/28/23 04/24/23 History phenazopyridine 200 mg tablet 200 mg PO Q8H PRN pain #10 tabs 04/08/23 04/24/23 Rx (Pyridium) tamsulosin 0.4 mg capsule 0.4 mg PO HS #30 caps 04/08/23 04/24/23 Rx Saccharomyces boulardii 250 mg 250 mg PO BID #20 caps 04/14/23 04/24/23 Rx capsule (Florastor) docusate sodium 100 mg capsule 100 mg PO BID PRN constipation #30 04/14/23 04/24/23 Rx (Stool Softener) caps prochlorperazine maleate 10 mg 10 mg PO Q6 PRN Nausea 04/24/23 04/24/23 History tablet Patient History Medical History Bone lesion to have bone biopsies done in the near future - possible metastatic. CAD (coronary artery disease) LEXA X 1 TO LAD (02/05/18), multivessel CAD with stable class 1-2 angina pectoris per [facility] cardio records Congestive heart failure treated with entresto and jardiance. follows with Dr Jaramillo - DIMAS pate. Esophageal cancer currently being treated with chemotherapy [id number]. dx earlier in 2022. following with Oncology [facility] valerio hair. GIST, non-malignant History of malignant neoplasm of bladder secondary cancer in 2019 History of pheochromocytoma s/p adrenalectomy 02/2012 History of prostate cancer S/P PROSTATECTOMY Hx of myocardial infarction 2018 - SEE DIAMOND HAD 1 STENT Hyperlipidemia Hypertension Inguinal hernia currently on the right inguinal Maintenance chemotherapy receiving Keytruda [id number]. Port-A-Cath in place Keytruda treatments [id number]. last treatment 03/30/23. 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 patient has ongoing chemotherapy treatments every 6 weeks Traumatic leg injury ~1974 traumatic accident. extensive right leg partial amputation that was able to be repaired and reattached with extensive grafts. Surgical History H/O transurethral resection of bladder tumor (TURBT) History of biopsy of bladder hx bladder cancer. History of cholecystectomy History of cystoscopy History of esophagogastroduodenoscopy (EGD) Hx of cardiac cath LEXA X 1 TO LAD (02/05/18) Hx of colonoscopy Hx of foot surgery RLE AND SKIN GRAFTS-- MULTIPLE REVISIONS; SUBSEQUENT RLE LIMB DEFORMITY (2/2 TRAUMA)-- ABLE TO AMBULATE WITHOUT ASSISTANCE Hx of prostatectomy Family History Mother Family history of diabetes mellitus Other No family history of adverse response to anesthesia Social History Smoking Status: Former smoker Tobacco Type: Cigarettes and Smokeless Tobacco (Dip or Chew) Cigarettes Per Day: DECEMBER 2017; 1PPD X 30 YEARS; Second Hand Exposure: No; Do You Dip or Chew Tobacco: No; Tobacco Cessation Education Requested by Patient: No Hx Alcohol Use: Yes (patient quit 6 years agon) Alcohol type: hard liquor Hx Substance Use: No Preferred Language: Emirati Communication Ability: Effective Visual Impairment: No Limitations Unionmelt Operator Required: No Beliefs That Will Affect Care: None Current Living Situation: Spouse Current Living Situation Comment: patient feels safe Other Information That Helps Us Care for You: No Feels Safe at Home: Yes Safety Concerns: Feels Safe At This Time Assistive Devices: None Review of Systems Review of Systems: All systems reviewed & are unremarkable except as noted in HPI & below Physical Exam Constitutional: Chronically ill appearing male, resting in bed, in no acute distress Respiratory: normal respiratory effort Auscultation: + diminished lung sounds; no rales and no wheezes Cardiovascular: Rate/Rhythm: regular rate Gastrointestinal (Abdomen): Percussion/Palpation: abdomen soft; abdomen nontender, no guarding and abdomen not rigid Skin: no rashes, warm and dry Results & Data Vital Signs (Past 12 Hours) Vital Signs Temp Pulse Pulse Resp BP Pulse Ox O2 Del Method 04/26/23 07:53 Room Air 04/26/23 07:26 36.3 C L 106 H 16 97/63 L 92 Room Air 04/26/23 07:16 94 H 04/26/23 03:43 36.4 C L 104 H 20 88/60 L 93 Room Air 04/25/23 23:00 96 H 04/25/23 23:32 36.5 C 108 H 20 90/58 L 94 Room Air Laboratory Results 04/26/23 04/26/23 Range/Units 06:55 06:55 WBC 7.15 (4.8-10.8) K/ul RBC 3.74 L (4.70-6.10) M/uL Hgb 10.9 L (14.0-18.0) g/dl Hct 33.9 L (42.0-52.0) % MCV 90.6 (80.0-100.0) fL MCH 29.1 (25.0-34.0) pg MCHC 32.2 (32.0-36.0) g/dL RDW Std Deviation 48.3 H (36.4-46.3) fL RDW Coeff of Misael 14.7 H (11.5-14.5) % Plt Count 216 (130-400) K/uL MPV 11.2 (9.4-12.4) fL Immature Gran % (Auto) 1.0 % Neut % (Auto) 85.2 % Lymph % (Auto) 4.5 % Wirt % (Auto) 6.6 % Eos % (Auto) 1.7 % Baso % (Auto) 1.0 % Neut # (Auto) 6.10 (1.40-6.50) K/uL Lymph # (Auto) 0.32 L (1.20-3.40) K/uL Wirt # (Auto) 0.47 (0.11-0.59) K/uL Eos # (Auto) 0.12 (0.00-0.50) K/uL Baso # (Auto) 0.07 (0.00-0.20) K/uL Immature Gran # (Auto) 0.07 (0.01-0.20) K/uL Sodium 138 (136-145) mmol/L Potassium 4.7 (3.5-5.1) mmol/L Chloride 107 (98-107) mmol/L Carbon Dioxide 22 (21-32) mmol/L Anion Gap 9 (3-11) BUN 34 H (6-23) mg/dl Creatinine 2.81 H D (0.6-1.4) mg/dl Est Cr Clr Drug Dosing 25.2 ml/min Est GFR ( Amer) 26.5 ml/min Est GFR (Non-Af Amer) 22.9 ml/min BUN/Creatinine Ratio 12.1 (10-20) Glucose 115 H (70-99(Fasting)) mg/dl Calcium 8.7 (8.6-10.3) mg/dl Total Bilirubin 4.6 H (0.2-1.0) mg/dl AST 283 H (13-39) U/L ALT 319 H (7-52) U/L Alkaline Phosphatase 1271 H (34-104) U/L Total Protein 5.4 L (6.0-8.3) gm/dl Albumin 2.8 L (3.4-5.0) gm/dl Globulin 2.6 (2.5-4.0) gm/dl Albumin/Globulin Ratio 1.1 (0.9-2)
[2023-04-26] MEDS: ADVANCED PROBIOTIC 1250 MG CAPSULE PO SCH (09:27)
[2023-04-26] MEDS: DOCUSATE SODIUM 100 MG CAP PO SCH (09:27)
[2023-04-26] MEDS: POLYETHYLENE (MIRALAX) 17 GM PACK PO SCH (09:27)
[2023-04-26] MEDS: EZETIMIBE 10 MG TAB PO SCH (09:28)
[2023-04-26] MEDS ORDERED: SODIUM CHLORIDE 0.9% 500 ML IV ONE (11:29)
--- NOTE | 2023-04-26 11:55 | Urology Progress Note ---
Date of Service April 26, 2023 Assessment & Plan (1) Ureteral stent present: (2) SHANE (acute kidney injury): Plan 63yo/M with a hx of upper tract UCC as well as bladder cancer who recently underwent full assessment with Dr. Singer with no signs of active malignancy found within the system however multiple signs of external compression and possible narrowing due to mass effect from the abdomen versus fluid versus other were found. He is s/p bilateral ureteral stent placement on 04/08/[address] Singer. He presented to the ED with abdominal pain, poor appetite, weakness, and hematuria and was admitted with sepsis, SHANE, elevated LFTs. - Afebrile, hypotensive. - Labs reviewed -WBC 7.15, hemoglobin 10.9, creatinine 2.81. Continue to trend. - Urine culture 04/24 negative. Blood cultures 04/24 prelim no growth x 24 hours. On Zosyn. - Garvin intact, draining appropriately. Urine is pink tinged. Continue to monitor. - Imaging reviewed - Bilateral ureteral stents appear in good position. - No acute urological intervention warranted. - Recommend maintaining Garvin catheter and we can arrange outpatient void trial/removal. - Continue supportive care, antibiotics, tamsulosin, prn Pyridium for stent management. - Will arrange outpatient follow-up with our service for continued care. - Urology will follow peripherally. Please call with any questions/concerns. Plan of care reviewed with Dr. Singer, on-call urologist. Admission and Anticipated Discharge Date Admission Date: April 24, 2023 Subjective Patient examined at bedside this AM. Awake, resting in bed on arrival. No acute distress. Reports lower back pain. Denies abdominal or flank pain. Garvin intact draining pink tinged urine. Urine output [id number] mL. Denies fevers, chills, nausea, vomiting. Review of Systems Constitutional: as per Subjective / HPI Gastrointestinal: as per Subjective / HPI Genitourinary: + as per Subjective / HPI Physical Exam Constitutional: no acute distress Respiratory: no respiratory distress and no labored breathing Skin: No visible rashes or lesions to exposed skin areas Neurologic: awake Genitourinary: Garvin catheter intact Results & Data Vital Signs (Past 12 Hours) Vital Signs Temp Pulse Pulse Resp BP Pulse Ox O2 Del Method 04/26/23 11:07 36.7 C 95 H 18 77/53 L 93 Room Air 04/26/23 07:53 Room Air 04/26/23 07:26 36.3 C L 106 H 16 97/63 L 92 Room Air 04/26/23 07:16 94 H 04/26/23 03:43 36.4 C L 104 H 20 88/60 L 93 Room Air PG Care Time/CCT Total # of Minutes Spent Total Time Spent with Patient: Total time spent is greater than 50% in coordination of care (as documented) at patient's floor/unit and/or counseling patient: Coding Level of Care Code 21475 SUB INP/OBS CARE 2/35MIN Diagnoses Ureteral stent present Z96.0 SHANE (acute kidney injury) N17.9
[2023-04-26] MEDS: ONDANSETRON INJ 2 MG/ML 2 ML VIAL IV PRN (12:10)
--- NOTE | 2023-04-26 13:04 | Hospitalist Progress Note ---
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 Family and patient requesting all options pursued at this point. Effort made to elucidate underlying source may be related to malignancy and that aggressive measures may not be available at this stage. However it would be prudent to rule out infectious etiologies and other manageable options at this time. Adenocarcinoma of lower third of esophagus Dysphagia #Mild ascites #Elevated LFTs -Reports dysphagia for several weeks -Liver US to assess vasculature given cirrhotic appearance but no duct involvement -Trend LFTs, plus acute hepatitis panel pending As per chart review, patient's last endoscopy was in March 2022; found to have medium size, ulcerating mass with no bleeding and stigmata of recent bleeding. GI evaluated the patient today. No plans for endoscopy as per GI PA MRCP ordered; will follow-up on results Placed on soft diet #Sepsis of unclear etiology -No clear infectious source, likely suspect malignancy related decompensation; however, given acute illness, +procal, and potential for infection, would be prudent to empirically cover will work up ensues Chest x-ray personally reviewed; no infiltrates. CT abdomen and pelvisno evidence of infection/abscess Urine culture no growth Blood culture no growth in 24 hours Continue on empiric Zosyn for now. DC antibiotic after blood cultures are negative for 48 hours On IV fluid with NS of 60 cc/h #Acute SHANE #Left hydronephrosis s/p bilateral ureteral stent placement -Stents placed 04/[address] hillman; potentially multifactial, obstructive 2/2 ?malignant process and prerenal given poor intake/ hypotension CT abdomen and pelvis shows persistent left-sided hydronephrosis despite presence of bilateral ureteral stents. Creatinine uptrending to 2. 81 today. Urine output of 400 cc. Evaluated by urology; no plan for any procedures for now Will get nephrology's input. Continue IV normal saline for now #Chronic HFmrEF (42% 11/2022) 2/2 ICM s/pt LEXA to the mid LAD #Prior STEMI -Continue Aspirin 81mg daily, continue zetia 10mg -Hold Atorvastatin 80mg daily, praulent 2/2 LFT elevations -Hold Spironolactone 25mg, Jardiance 10mg, and Entresto 2/2 SHANE and hypotension -Hold Metoprolol 100mg daily 2/2 hypotension -Resume above as able -Monitor on telemetry -Strict I/Os monitor respiratory status 2/2 aggressive fluid resuscitation #Metastatic adenocarcinoma 1/3 of esophagus #Prior GIST tumor s/p resection of small bowel #Urothelial cell carcinoma -He completed 12 cycles of FOLFOX plus Keytruda treatment; Herceptin was discontinued because of the decreasing ejection fraction -Recent PET with notable increased hypermetabolic areas, including diffuse bone involvement and involvement of nodes around liver confluence -Patient had appointment with oncology on April 26; which will be rescheduled. #Uncontrolled HLD -Home regimen: Lipitor 80 mg daily and Zetia 10 mg daily and Praluent, started 02/26/23 -Hold praluent and statin 2/2 lfts DVT heparin Bowel regimen colace bid mirlax daily Zofran prn Lytes:replace prn Goals of care discussion; discussed with patient and patient's significant other at bedside about patient's overall condition. His kidney function continued to get worse as well as his appetite. Patient has advanced carcinoma and poor functional status. We discussed overall poor prognosis. I also discussed with the patient regarding CODE STATUS. He agrees that chest compression and intubation will not be beneficial. CODE STATUS changed to DNR/DNI. He also requested me to talk with his sister. Discussed with Hortencia over the phone; she is agreeable with the plan of treating underlying medical condition/reversible causes to try to improve his functional status. Ultimately, the goal is to make sure that he is comfortable and not in pain. Time spent evaluating patient, direct bedside care, chart review, placing orders, interpretation of diagnostic studies, discussion with consultants, patient, and family members, as well as other required patient management activities is 90 minutes Please note the above document was generated using voice recognition software. It may contain grammatical, syntax or spelling errors. Any formal questions or concerns about the content, text or information contained within the body of this dictation should be directly addressed to the provider for clarification Admission and Anticipated Discharge Date Admission Date: April 24, 2023 Subjective Patient seen and examined at bedside. He reports that pain is much better controlled with IV Dilaudid as needed. Blood pressure remains borderline; other vital signs stable Review of Systems Review of Systems: All systems reviewed & are unremarkable except as noted in Subjective Physical Exam Physical Exam: GENERAL APPEARANCE: AxOx4, appears comfortable. NECK: Supple without lymphadenopathy. No stiffness or restricted ROM. HEART: Normal rate and regular rhythm, normal S1/S1, no m/r/g LUNGS: CTAB, moving air well. No crackles or wheezes are heard. ABDOMEN: Distended, firm. Hepatomegaly present. Bowel sound present. EXTREMITIES: Without cyanosis, clubbing or edema. NEUROLOGICAL: Grossly nonfocal. Alert and oriented, moving all 4 extremities. Grossly intact Results & Data Results & Data Vital Signs (Past 12 Hours) Vital Signs Temp Pulse Pulse Resp BP Pulse Ox O2 Del Method 04/26/23 11:07 36.7 C 95 H 18 77/53 L 93 Room Air 04/26/23 07:53 Room Air 04/26/23 07:26 36.3 C L 106 H 16 97/63 L 92 Room Air 04/26/23 07:16 94 H 04/26/23 03:43 36.4 C L 104 H 20 88/60 L 93 Room Air Laboratory Results Laboratory Results WBC 7.15 K/ul (4.8-10.8) 04/26/23 06:55 RBC 3.74 M/uL (4.70-6.10) L 04/26/23 06:55 Hgb 10.9 g/dl (14.0-18.0) L 04/26/23 06:55 POC Hgb 10.2 g/dl (14.0-18.0) L 04/24/23 12:24 Hct 33.9 % (42.0-52.0) L 04/26/23 06:55 POC Hct 30 % (42-52) L 04/24/23 12:24 MCV 90.6 fL (80.0-100.0) 04/26/23 06:55 MCH 29.1 pg (25.0-34.0) 04/26/23 06:55 MCHC 32.2 g/dL (32.0-36.0) 04/26/23 06:55 RDW Std Deviation 48.3 fL (36.4-46.3) H 04/26/23 06:55 RDW Coeff of Misael 14.7 % (11.5-14.5) H 04/26/23 06:55 Plt Count 216 K/uL (130-400) 04/26/23 06:55 MPV 11.2 fL (9.4-12.4) 04/26/23 06:55 Immature Gran % (Auto) 1.0 % 04/26/23 06:55 Neut % (Auto) 85.2 % 04/26/23 06:55 Lymph % (Auto) 4.5 % 04/26/23 06:55 Irwin % (Auto) 6.6 % 04/26/23 06:55 Eos % (Auto) 1.7 % 04/26/23 06:55 Baso % (Auto) 1.0 % 04/26/23 06:55 Neut # (Auto) 6.10 K/uL (1.40-6.50) 04/26/23 06:55 Lymph # (Auto) 0.32 K/uL (1.20-3.40) L 04/26/23 06:55 Irwin # (Auto) 0.47 K/uL (0.11-0.59) 04/26/23 06:55 Eos # (Auto) 0.12 K/uL (0.00-0.50) 04/26/23 06:55 Baso # (Auto) 0.07 K/uL (0.00-0.20) 04/26/23 06:55 Immature Gran # (Auto) 0.07 K/uL (0.01-0.20) 04/26/23 06:55 PT 10.4 Seconds (9.0-12.0) 04/24/23 12:14 INR 0.9 (0.9-1.1) 04/24/23 12:14 POC Sodium 141 mmol/L (135-144) 04/24/23 12:24 Sodium 138 mmol/L (136-145) 04/26/23 06:55 POC Potassium 3.9 mmol/L (3.3-5.0) 04/24/23 12:24 Potassium 4.7 mmol/L (3.5-5.1) 04/26/23 06:55 POC Chloride 109 mmol/L (101-112) 04/24/23 12:24 Chloride 107 mmol/L (98-107) 04/26/23 06:55 Carbon Dioxide 22 mmol/L (21-32) 04/26/23 06:55 POC Total CO2 18 mmol/L (24-31) L 04/24/23 12:24 Anion Gap 9 (3-11) 04/26/23 06:55 POC Anion Gap 18.0 mmol/L (16-25) 04/24/23 12:24 POC BUN 28 mg/dl (7-18) H 04/24/23 12:24 BUN 34 mg/dl (6-23) H 04/26/23 06:55 Creatinine 2.81 mg/dl (0.6-1.4) H D 04/26/23 06:55 POC Creatinine 1.9 mg/dl (0.6-1.3) H 04/24/23 12:24 Est Cr Clr Drug Dosing 25.2 ml/min 04/26/23 06:55 Est GFR ( Amer) 26.5 ml/min 04/26/23 06:55 Est GFR (Non-Af Amer) 22.9 ml/min 04/26/23 06:55 BUN/Creatinine Ratio 12.1 (10-20) 04/26/23 06:55 Glucose 115 mg/dl (70-99(Fasting)) H 04/26/23 06:55 POC Glucose (other) 86 mg/dl (70-99) 04/24/23 12:24 Lactate 1.6 mmol/L (0.4-2.0) 04/24/23 12:14 Calcium 8.7 mg/dl (8.6-10.3) 04/26/23 06:55 POC Ioniz Calcium Michelle 1.01 mmol/l (1.12-1.32) L 04/24/23 12:24 Phosphorus 3.9 mg/dl (2.5-4.9) 04/25/23 05:58 Magnesium 2.0 mg/dl (1.7-2.4) 04/25/23 05:58 Iron 43 mcg/dl (35-175) 04/25/23 05:58 Unsaturated IBC 114 mcg/dl (155-355) L 04/25/23 05:58 Transferrin 118 mg/dl (200-360) L 04/25/23 05:58 Ferritin 1238.7 ng/ml (8-388) H 04/25/23 05:58 Total Bilirubin 4.6 mg/dl (0.2-1.0) H 04/26/23 06:55 AST 283 U/L (13-39) H 04/26/23 06:55 ALT 319 U/L (7-52) H 04/26/23 06:55 Alkaline Phosphatase 1271 U/L (34-104) H 04/26/23 06:55 Total Creatine Kinase 28 U/L (30-223) L 04/25/23 05:58 Troponin I High Sens 11.7 pg/ml (0-20) 04/24/23 12:14 Total Protein 5.4 gm/dl (6.0-8.3) L 04/26/23 06:55 Albumin 2.8 gm/dl (3.4-5.0) L 04/26/23 06:55 Globulin 2.6 gm/dl (2.5-4.0) 04/26/23 06:55 Albumin/Globulin Ratio 1.1 (0.9-2) 04/26/23 06:55 Cholesterol 130 mg/dl (0-200) 04/25/23 05:58 Amylase 64 U/L (25-115) 04/25/23 05:58 Lipase 132 U/L (11-82) H 04/25/23 05:58 Procalcitonin 0.65 ng/ml (0-0.5) H 04/24/23 12:14 TSH 4.306 uIu/ml (0.300-4.500) 04/24/23 12:14 Urine Color [place] 04/24/23 12:37 Urine Appearance Cloudy (Clear) A 04/24/23 12:37 Urine pH (4.5-7.5) 04/24/23 12:37 Ur Specific [place] 1.024 (1.000-1.030) 04/24/23 12:37 Urine Protein (Negative) 04/24/23 12:37 Urine Glucose (UA) (Negative) 04/24/23 12:37 Urine Ketones (Negative) 04/24/23 12:37 Urine Blood (Negative) 04/24/23 12:37 Urine Nitrite (Negative) 04/24/23 12:37 Urine Bilirubin (Negative) 04/24/23 12:37 Urine Urobilinogen (Negative) 04/24/23 12:37 Ur Leukocyte Esterase (Negative) 04/24/23 12:37 Urine RBC >30 /hpf (0-4) H 04/24/23 12:37 Urine WBC >30 /hpf (0-5) H 04/24/23 12:37 Ur Epithelial Cells >30 /lpf (0-5) H 04/24/23 12:37 Urine Bacteria 2+ (Negative) H 04/24/23 12:37 Acetaminophen < 3 ug/ml (10-30) L 04/25/23 05:58 SARS-CoV-2, RNA, NAAT NEGATIVE (NEGATIVE) 04/24/23 Unknown Blood Type O Positive 04/24/23 12:14 Antibody Screen NEGATIVE 04/24/23 12:14 Impressions Chest X-Ray 04/24/23 12:06 XR chest 1V portable CLINICAL HISTORY: weakness TECHNIQUE: Single frontal radiograph of the chest was obtained. Comparison: Comparison is made to chest radiograph 04/14/2023 FINDINGS: A port catheter is seen. The cardiomediastinal silhouette is normal. Mild perihilar opacities are seen, right greater than left. Minimal emphysematous changes are seen. No evidence of pleural effusion or pneumothorax. IMPRESSION: Mild pulmonary edema. Right greater than left perihilar opacities may reflect atelectasis, less likely viral pneumonia. ACT 112: Negative or not required by law. Electronically signed by: Eugenio Mohr M.D. 04/24/2023 12:46 PM Abdomen/Pelvis CT 04/24/23 12:27 CT abd pelvis wo con CLINICAL HISTORY: kidney pain, SHANE, cancer stents TECHNIQUE: Helical axial images of the abdomen and pelvis were obtained. Automated dose lowering techniques and/or adjustment according to patient size were utilized for this exam. This exam was performed without intravenous contrast. CT DOSE: 1209.53 mGy.cm COMPARISON: Comparison is made to CT abdomen pelvis 04/14/2023 FINDINGS: Lower chest: Small bilateral pleural effusions are seen with underlying atelectasis. Partial visualization of thoracic lymphadenopathy. Liver: Periportal edema is seen. Nodular contour of the liver is compatible with cirrhosis. Gallbladder and biliary tree: Patient is status post cholecystectomy. No intra- or extrahepatic biliary ductal dilation. Pancreas: Unremarkable, no focal lesions. Spleen: Unremarkable. Adrenals: Unremarkable. Kidneys and ureters: Bilateral nephroureteral stents are seen. Left hydronephrosis is seen. Irregular soft tissue about the left ureter is again noted. Bladder: Limited evaluation due to underdistention. Reproductive organs: Unremarkable. Bowel: A hiatal hernia is seen. Lymph nodes Retroperitoneal: A robbie hepatis lymph node measures 35 mm in short axis, increased from prior. Additional retroperitoneal lymphadenopathy is seen. Pelvic: Unremarkable. Mesenteric: Unremarkable. Peritoneum: Redemonstration of peritoneal deposits most prominent in the right upper quadrant. Mild ascites is seen. Vessels: Atherosclerotic calcifications are seen. Abdominal wall: Bilateral fat-containing inguinal hernias are seen. Bones: A few osteolytic foci are seen in the lower bony metastatic disease, similar to prior exam. IMPRESSION: 1. Left hydronephrosis is again seen despite presence of bilateral ureteral stents. Otherwise no acute abnormalities are seen. 2. Robbie hepatis and retroperitoneal lymphadenopathy are again seen. The dominant lymph node in the robbie hepatis is enlarged from prior exam. 3. Redemonstration of metastatic soft tissue implants and lucencies in the spine concerning for osteolytic metastatic disease. 4. Cirrhosis and mild ascites. 5. Trace bilateral pleural effusions. ACT 112: Negative or not required by law. Electronically signed by: Eugenio Mohr M.D. 04/24/2023 2:11 PM
--- NOTE | 2023-04-26 13:13 | Nephrology Consultation ---
Date of Consultation April 26, 2023 Assessment & Plan (1) SHANE (acute kidney injury): Patient had a completely normal kidney function of creatinine 1.1 just 2 months ago. But now for the last 3 days creatinine has been rising and is up to 2.8 now. the potential etiology of acute renal failure is very wide--- from sepsis with hypotension with ATN, obstructive uropathy as well as nephrotoxicity of Keytruda which is also well known. most recent blood pressure is still very low at 77 systolic. given this I would continue with the IV fluid for the time being. NS at 80 ml/hr stop Entresto spironolactone diuretics as well as Keytruda for the time being. input output charting daily renal panel and CBC and LFT. Stop Flomax because of Low BP and no need now. Add midodrine 5 tid for low BP (2) Ureteral stent present: patient has metastatic cancer of esophagus as well as bladder tumor. as per urology note patient Garvin catheter as well as ureteric stent is in appropriate place and draining appropriately. however there is some mention of extrinsic compression of urinary tract. in that case sometime patient do need percutaneous nephrostomy tube. Depending on the renal function trend in the coming days will discuss this. Plan very complicated patient involving extensive outpatient as well as inpatient review of records. 1 hour 5 minute was spent in total. History of Present Illness Reason for Consultation: Acute renal failure Attending Physician: Luis Alfredo Brooke MD History of Present Illness 63-year-old male with known metastatic esophageal cancer currently on single agent Keytruda. 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 Patient presented to ED on 04/14 due to the pain and felt improved after IV fluids and pain medication. Patient completed course of Keflex post stent placement--but despite that, still notes continued pain. Shortly after the ED visit, patient reports an episode of projectile vomiting and then on 04/23, a massive quantity of bilious vomiting. Patient states his urine is also progressively darker and with gross blood often--but his UOP has decreased significantly. He reports minimal appetite. Upon arrival to ED, patient was hypotensive to 70s, but responded to fluid boluses with blood pressures stabilizing in 90s. CT abdomen shows persistent left hydronephrosis despite presence of bilateral ureteral stents. also noted to have cirrhosis with ascites as well as multiple findings consistent with metastatic cancer. as for his renal function he had a creatinine of 1.1 as of February 25, 2023. Then on March 10 it went up to 1.3 and then to 1.5 on March 22. on admission February 22 creatinine was 2.3 then 2.5 and today is 2.8. This is despite getting IV fluid. patient has a Garvin catheter and bilateral ureteric stent and as per Urology everything is in place and draining appropriately. review of systems---- patient feels weak and tired with multiple areas of aches and pains. Also reports having some shortness of breath. Weight loss as well as loss of appetite. He had constipation recent. other systems also reviewed and is otherwise negative Allergies Allergy/AdvReac Type Severity Reaction Status Date / Time codeine Allergy Unknown HIVES Verified 04/24/23 15:44 Home Medications Medication Instructions Recorded Confirmed Type aspirin 81 mg chewable tablet 81 mg PO QAM 04/21/18 04/24/23 History alirocumab 75 mg/mL subcutaneous 75 mg subcut UD 03/28/23 04/24/23 History pen injector (Praluent Pen) atorvastatin 80 mg tablet 80 mg PO QAM 03/28/23 04/24/23 History empagliflozin 10 mg tablet 10 mg PO QAM 03/28/23 04/24/23 History (Jardiance) ezetimibe 10 mg tablet 10 mg PO QAM 03/28/23 04/24/23 History metoprolol succinate 100 mg 100 mg PO QAM 03/28/23 04/24/23 History tablet,extended release 24 hr sacubitril 24 mg-valsartan 26 mg 1 tab PO BID 03/28/23 04/24/23 History tablet (Entresto) spironolactone 25 mg tablet 25 mg PO QAM 03/28/23 04/24/23 History phenazopyridine 200 mg tablet 200 mg PO Q8H PRN pain #10 tabs 04/08/23 04/24/23 Rx (Pyridium) tamsulosin 0.4 mg capsule 0.4 mg PO HS #30 caps 04/08/23 04/24/23 Rx Saccharomyces boulardii 250 mg 250 mg PO BID #20 caps 04/14/23 04/24/23 Rx capsule (Florastor) docusate sodium 100 mg capsule 100 mg PO BID PRN constipation #30 04/14/23 04/24/23 Rx (Stool Softener) caps prochlorperazine maleate 10 mg 10 mg PO Q6 PRN Nausea 04/24/23 04/24/23 History tablet Patient History Medical History Bone lesion to have bone biopsies done in the near future - possible metastatic. CAD (coronary artery disease) LEXA X 1 TO LAD (02/05/18), multivessel CAD with stable class 1-2 angina pectoris per [facility] cardio records Congestive heart failure treated with entresto and jardiance. follows with Dr Jaramillo - Jovita pate. Esophageal cancer currently being treated with chemotherapy [id number]. dx earlier in 2022. following with Oncology [facility] valerio hair. GIST, non-malignant History of malignant neoplasm of bladder secondary cancer in 2019 History of pheochromocytoma s/p adrenalectomy 02/2012 History of prostate cancer S/P PROSTATECTOMY Hx of myocardial infarction 2018 - SEE DIAMOND HAD 1 STENT Hyperlipidemia Hypertension Inguinal hernia currently on the right inguinal Maintenance chemotherapy receiving Keytruda [id number]. Port-A-Cath in place Keytruda treatments [id number]. last treatment 03/30/23. 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 patient has ongoing chemotherapy treatments every 6 weeks Traumatic leg injury ~1974 traumatic accident. extensive right leg partial amputation that was able to be repaired and reattached with extensive grafts. Surgical History H/O transurethral resection of bladder tumor (TURBT) History of biopsy of bladder hx bladder cancer. History of cholecystectomy History of cystoscopy History of esophagogastroduodenoscopy (EGD) Hx of cardiac cath LEXA X 1 TO LAD (02/05/18) Hx of colonoscopy Hx of foot surgery RLE AND SKIN GRAFTS-- MULTIPLE REVISIONS; SUBSEQUENT RLE LIMB DEFORMITY (2/2 TRAUMA)-- ABLE TO AMBULATE WITHOUT ASSISTANCE Hx of prostatectomy Family History Mother Family history of diabetes mellitus Other No family history of adverse response to anesthesia Social History Smoking Status: Former smoker Tobacco Type: Cigarettes and Smokeless Tobacco (Dip or Chew) Cigarettes Per Day: DECEMBER 2017; 1PPD X 30 YEARS; Second Hand Exposure: No; Do You Dip or Chew Tobacco: No; Tobacco Cessation Education Requested by Patient: No Hx Alcohol Use: Yes (patient quit 6 years agon) Alcohol type: hard liquor Hx Substance Use: No Preferred Language: Macedonian Communication Ability: Effective Visual Impairment: No Limitations [employer] Worker Required: No Beliefs That Will Affect Care: None Current Living Situation: Spouse Current Living Situation Comment: patient feels safe Other Information That Helps Us Care for You: No Feels Safe at Home: Yes Safety Concerns: Feels Safe At This Time Assistive Devices: None Physical Exam Physical Exam: awake alert oriented x3 he appears weak and tired. No respiratory distress at rest Neck: mucous membrane is moist neck is supple no JVD Respiratory: bilateral decreased breath sound occasional crackles Cardiovascular: S1 and S2 regular soft systolic murmur heard Gastrointestinal (Abdomen): abdomen is soft nontender. Skin: No rashes noted Genitourinary: Garvin catheter in place and does have some gross hematuria Results & Data Vital Signs (Past 12 Hours) Vital Signs Temp Pulse Pulse Resp BP Pulse Ox O2 Del Method 04/26/23 11:07 36.7 C 95 H 18 77/53 L 93 Room Air 04/26/23 07:53 Room Air 04/26/23 07:26 36.3 C L 106 H 16 97/63 L 92 Room Air 04/26/23 07:16 94 H 04/26/23 03:43 36.4 C L 104 H 20 88/60 L 93 Room Air
[2023-04-26] MEDS ORDERED: MAGNESIUM HYDROXIDE SUSP 30 ML UDC PO ONE (13:44)
[2023-04-26] MEDS ORDERED: POLYETHYLENE (MIRALAX) 17 GM PACK PO SCH (13:45)
--- NOTE | 2023-04-26 14:00 | Ultrasound Report ---
US duplex portal hepatic veins CLINICAL HISTORY: assess vasculature COMPARISON STUDY: CT of the abdomen and pelvis with contrast April 14, 2023. CT of the abdomen and pelvis without contrast April 24, 2023. FINDINGS: The middle, left and right hepatic veins are patent. The main and right portal veins are pa tent with appropriately directed flow. No flow is identified within the left portal vein with possibl e portal venous thrombus. This vessel was patent on contrast enhanced CT of April 14, 2023. Hepatic artery is patent. Hepatic artery waveform is normal. IMPRESSION: 1. Patent main and right portal veins. 2. Possible thrombus within the left portal vein, as described above. This may be artifactual however interval thrombosis since CT of April 14, 2023 cannot be excluded. ACT 112: Negative or not required by law. Electronically signed by: Quirino Fu M.D. 04/26/2023 1:59 PM
--- NOTE | 2023-04-26 16:38 | Ultrasound Report ---
Limited abdominal ultrasound INDICATION: Ascites; possible paracentesis FINDINGS: Real-time ultrasound imaging in all 4 abdominal quadrants demonstrates a trace amount of as cites at the dome of the liver. No paracentesis will be performed. IMPRESSION: Scant ascites noted as above. No paracentesis was performed due to location and small rima ntity. Electronically signed by: Eugenio Mohr M.D. 04/26/2023 8:53 PM
[2023-04-26] MEDS ORDERED: GLYCOPYRROLATE 0.2 MG/ML VIAL IV PRN (16:54)
[2023-04-26] MEDS ORDERED: LORazepam 2 MG/1 ML VIAL IV PRN (16:54)
[2023-04-26] MEDS ORDERED: HYDROmorphone INJ 0.5 MG/0.5 ML SYR IV PRN (16:54)
[2023-04-26] MEDS ORDERED: fentaNYL 12 MCG/HR TDSY TD SCH (17:00)
--- NOTE | 2023-04-26 17:01 | Communication Note ---
Date of Service: April 26, 2023 Brief palliative medicine note Consult reviewed/appreciated. Patient seen and examined. Met with patient and his significant other at the bedside. A full consult note will follow. After meeting with patient and reviewing advance care planning as well as discussing his goals of care, he indicated a preference to transition to a focus more on comfort and quality of life. He and significant other share they have a meeting with Dr. Aquino from the [facility] oncology last week who informed them that his cancer has severely progressed and he is no longer a candidate for any cancer directed therapy. He wishes to focus on comfort and quality of life and acknowledges that he will need a usp but prefers that he be close to home so his significant other as well as some friends and family can come visit him. He does not wish to have any rehab or additional therapies. He does want pain improved. I have ordered a low-dose transdermal fentanyl patch to begin long-acting pain control and will for now continue as needed IV Dilaudid. I have modified orders to transition him to a comfort focused plan of care and I have updated the primary team. Thank you for allowing us to participate in the ongoing care of this patient. Please don't hesitate to call or page with any additional concerns. Dr. Leeann Anderson DNP Director, Palliative Care
[2023-04-26] MEDS: MIDODRINE HCL 2.5 MG TAB PO SCH (17:25)
[2023-04-27] MEDS: CHECK fentaNYL PATCH PLACEMENT SCH ×3 (00:20→16:18)
[2023-04-27] MEDS: DOCUSATE SODIUM 100 MG CAP PO SCH ×3 (05:44→19:52)
--- NOTE | 2023-04-27 06:17 | Electrocardiogram Report ---
Test Reason : Blood Pressure : / mmHG Vent. Rate : 099 BPM Atrial Rate : 099 BPM P-R Int : 144 ms QRS Dur : 100 ms QT Int : 356 ms P-R-T Axes : 046 -10 045 degrees QTc Int : 456 ms Normal sinus rhythm Inferior infarct , age undetermined Cannot rule out Anterior infarct (cited on or before 01-MAR-2018) Abnormal ECG When compared with ECG of 14-APR-2023 12:04, Inferior infarct is now Present Confirmed by Lj Huang ([id number]) on 04/27/2023 6:17:25 AM Referred By: Confirmed By:Lj Huang
[2023-04-27] MEDS: HYDROmorphone INJ 0.5 MG/0.5 ML SYR IV PRN ×2 (06:38→17:23)
[2023-04-27] MEDS: ONDANSETRON INJ 2 MG/ML 2 ML VIAL IV PRN (07:16)
[2023-04-27] MEDS: SODIUM CHLORIDE 0.9% 1,000 ML IV SCH ×3 (07:16→18:13)
[2023-04-27] MEDS ORDERED: MAGNESIUM HYDROXIDE SUSP 30 ML UDC PO ONE (07:43)
[2023-04-27] MEDS: ADVANCED PROBIOTIC 1250 MG CAPSULE PO SCH (07:49)
[2023-04-27] MEDS: MIDODRINE HCL 2.5 MG TAB PO SCH ×3 (07:49→16:17)
[2023-04-27] MEDS: POLYETHYLENE (MIRALAX) 17 GM PACK PO SCH (07:51)
--- NOTE | 2023-04-27 09:46 | Palliative Care Consultation ---
Date of Consultation April 27, 2023 Assessment & Plan (1) Cancer related pain: Ian has had poorly controlled cancer related pain and would like to try something longer acting. Because of the growing troubles with taking p.o. meds, we will begin a trial of transdermal fentanyl patch at 12 mcg/h. Advised him this will take 1 to 2 days to determine if it is working patient continue to requested use his as needed Dilaudid in the interim. He is in agreement with this plan. All questions were answered to his apparent satisfaction. Orders were written. I have updated nursing and the primary team. (2) Weakness generalized: (3) Anxiety associated with cancer diagnosis: (4) Advanced care planning/counseling discussion: [id number] advance care planning discussion was held with Ian and his girlfriend at the bedside for approximately 65 minutes. We discussed the overall progression of his cancer since diagnosis approximately 1 year ago. He has had progression on therapy and a declining performance status, no longer able to tolerate cancer directed therapies. They met with his oncologist last week and had a very detailed conversation with regards to the state of his cancer. He tells me that he is aware from that discussion that he has a terminal cancer and his time is running short. He is very worried about the arrangements he needs to make to be sure that his girlfriend can remain in his home after he is . He states that his biggest concern is that her brother will try to take the house from her and ultimately she may be homeless. Her brother lives with them sporadically, does not contribute financially and has generally been a source of stress and tension for the patient. Ian admits that in the past they have gotten into arguments. We discussed the options at this junction. Ian is very concerned about being a burden to his girlfriend, noting that she alone cannot provide for all his care as he is growing weaker and knows that he will need more help. She is also worried about this and notes that her brother will not be of any help. She feels that he needs skilled nursing placement. He is worried about what this will cost. I encouraged him to have more discussions with care management with regards to the finances of skilled nursing placement but he is also insistent that what ever skilled nursing he is ultimately placed him, it is proximal to home because his girlfriend does not drive. He is worried about being away from home at a time he needs to make some arrangements including the legal and financial planning he needs to do for his girlfriend to not only get his home but also he wishes to transfer over ownership of his vehicle to her as well. They have a lot of advance care planning in terms of legal and financial matters to address. She admits that they have largely ignored these issues and a form of denial, and admits that much of this stems from her. Patient has been very vocal about the steps he feels they needed to take but she has been unwilling to do them and gives the example of having to get a flatbed driver's license so that she will be able to use the vehicle he is leaving her. Have also not taken the steps necessary to make sure the title of the home will transfer to her upon his . They feel that all these issues need to be handled in an expedited manner at this junction. She is also worried about the finances of being able to remain in the home after patient has because the finances coming into the home will be different and her brother does not contribute. I encouraged her to meet with care management to discuss these concerns and then also perhaps to explore options for the Department of Public Health Service Officer in their community. Given her relatively young age (in her mid 50s) I do not think she will qualify for assistance through the [facility] agency on aging. If she has a animal assistant through director social service, then that is the individual she should be connecting with and I encouraged her to make a call tomorrow to begin getting some answers for herself. (5) Palliative care by specialist: Met with pt/family. Provided overview of Palliative Medicine, a subspecialty that provides specialized medical care for people living with a serious illness by offering a focus on quality of life. Palliative Medicine is often conflated with hospice: I advised patient/family that Palliative and hospice can be partners but we are not the same. It is important to understand the difference so that we may be informed, and not afraid. Palliative Medicine works to improve QOL through reduction of symptom burden/more control over their illness, for both the patient and family. Palliative medicine clinicians are board certified, specially-trained and another member of the patient's medical care team. We often provide an extra layer of support because our care is based on the needs of the patient, not the prognosis; as such, it's appropriate at any age/advancing stage of a serious illness and can be provided along with curative treatment. Palliative Medicine clinicians are also trained in advanced communication methodologies, to facilitate complex discussions about advanced illness planning, which are needed to help assure that the treatment choices match the patient's goals, aka delivering Goal Concordant care. Finally, we discussed that hospice is a visiting nurse service that focuses on care delivered at the very end of life for patients with terminal illness, with life expectancy less than 6 month. (6) Encounter for hospice care discussion: We discussed the goals of hospice as a patient service and the goals of care; we discussed EOL trajectories and transitions michelle the emotional impact of realizing mortality as a concrete reality from prior abstract considerations. Pt was reassured that no matter where they are along this trajectory, they are not alone - their medical team will remain by their side through their journey. Discussed the pros/cons of accepting help when especially weakened and distressed by pain-which would also help provide relief/decrease caregiver burden/strain. I provided education about the hospice benefit: an interdisciplinary program offered by nurses, nurses aides, social workers, c haplains and a dental assistant medical assistant for patients with a terminal condition and a life expectancy of less than 6 months. This is covered by Medicare at 100%/no out of pocket expense to patient and all meds/supplies needed by patient for the reason they are on hospice are paid for/covered by hospice. The goal is assure quality of life of the patient in their home setting (home, skilled nursing, inpatient hospice setting) by providing symptoms management, psychosocial and spiritual support. However, they cannot offer 24 hours care and if the family is unable to provide that care, they will have to consider personal care with out of pocket cost vs. skilled nursing placement. We discussed the goals of hospice as a patient service and the goals of care; we discussed EOL trajectories and transitions michelle the emotional impact of realizing mortality as a concrete reality from prior abstract considerations. Pt was reassured that no matter where they are along this trajectory, they are not alone - their medical team will remain by their side through their journey. Discussed the pros/cons of accepting help when especially weakened and distressed by pain-which would also help provide relief/decrease caregiver burden/strain. 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 He is aware that his time is running short and he has a terminal, metastatic cancer. He wants to make sure that he is able to resolve the pressing legal and financial matters to assure that his girlfriend has a home to remain in. He is worried about becoming a burden to his family desires placement in a skilled nursing although he states his first which would still be to return home but she has been expressing significant amount of discomfort about her ability to handle all his needs. I encouraged them to further discuss these issues as noted above in the ACP and hospice discussions. * I have modified Alberto pain management to try and improve overall long-acting relief. We will continue to reassess this over the next few days. * Ian wants to transition the focus to be more about comfort and quality of life. He does not wish to pursue any further aggressive or invasive interventions. We have moved him over to a comfort plan of care in accordance with his expressed wishes. His family is in agreement. I have written orders and notified nursing as well as the primary team and care management. Thank you for allowing us to participate in the ongoing care of this patient. Please don't hesitate to call or page with any additional concerns. Dr. Leeann Anderson DNP Director, Palliative Care History of Present Illness Reason for Consultation: [facility] Attending Physician: Luis Alfredo Brooke MD History of Present Illness Leandro Monreal is a 63yo male admitted 04.24.23 terminal met adenoca of esophagus, followed by Dr Aquino at [facility]. 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 Please see GI consult for further information. Abdominal ultrasound revealed scant ascites. No paracentesis was warranted. Abdominal and pelvic CT demonstrated left hydronephrosis which is consistent and unchanged despite his bilateral ureteral stents, robbie hepatis and retroperitoneal lymphadenopathy is again noted. There is a dominant lymph node in the robbie hepatis that is enlarged from prior exam. There is metastatic soft tissue implants and lucency in the spine consistent with osteolytic metastatic disease. Cirrhosis and ascites is noted, trace bilateral effusions. Patient is aware of the above findings. He also adds that these are not dramatically changed from prior findings which he has been in discussion and been made aware of through conversations with his oncologist. He is aware that he has had disease progression on therapy. He is no longer pursuing cancer directed therapy. He was admitted for suspected sepsis ?bilateral ureteral stents, acute liver injury, and aggressive, ongoing malignant process. No clear infectious source was found. He has been seen by numerous consultants. He is seen at bedside with his girlfriend Ivon, they have been together 10+ years. her brother also lives with them and this has been, per pt, a source of tension for him. Ian reports increasing pain that begins in the middle lower part of his chest above his stomach and extends in a generalized manner across his abdomen and then also feels a little bit more increased in the suprapubic region. He states there is also generalized pain throughout his body. He has been taking some oxycodone without much relief. In the hospital he has had some Dilaudid which she reports has provided more relief. He is hoping he can have a medication that works for a little longer duration. His appetite has been somewhat limited. He does better with liquids and solids. He has been favoring water as well as tea or coffee. He has tried some Yi ice and apple sauce. He has not been able to tolerate foods such as meat or bread. He has been steadily losing weight. His generalized performance status is declining. His mentation remains intact. He is frustrated by his declining strength but also worried about the future for his girlfriend, noting that he wants her to be able to remain in their home. Her brother currently lives with them but patient states he does not contribute to the home in any way and adds to the stress. He wants to make sure the house is free and clear in her name and that her brother does not try to impose any claim on the home. Ian tells me they had a meeting with his oncologist last week and he and his girlfriend were advised at this time that his cancer is terminal. All cancer directed therapies were stopped. His cancer has progressed on treatment. He was advised at that time to transition his focus to be more about comfort and quality of life. He acknowledges that he was not ready to hear this at the time of that discussion and that is in part what brought him to the hospital. However he now recognizes that time is running short he does not wish to spend what ever time is remaining in the hospital. He states he has some matters to trying to high up to assure that his girlfriend is able to remain in the home and feels he needs to be out of the hospital while he is still able to think clearly to coordinate these issues. Allergies Allergy/AdvReac Type Severity Reaction Status Date / Time codeine Allergy Unknown HIVES Verified 04/24/23 15:44 Home Medications Medication Instructions Recorded Confirmed Type aspirin 81 mg chewable tablet 81 mg PO QAM 04/21/18 04/24/23 History alirocumab 75 mg/mL subcutaneous 75 mg subcut UD 03/28/23 04/24/23 History pen injector (Praluent Pen) atorvastatin 80 mg tablet 80 mg PO QAM 03/28/23 04/24/23 History empagliflozin 10 mg tablet 10 mg PO QAM 03/28/23 04/24/23 History (Jardiance) ezetimibe 10 mg tablet 10 mg PO QAM 03/28/23 04/24/23 History metoprolol succinate 100 mg 100 mg PO QAM 03/28/23 04/24/23 History tablet,extended release 24 hr sacubitril 24 mg-valsartan 26 mg 1 tab PO BID 03/28/23 04/24/23 History tablet (Entresto) spironolactone 25 mg tablet 25 mg PO QAM 03/28/23 04/24/23 History phenazopyridine 200 mg tablet 200 mg PO Q8H PRN pain #10 tabs 04/08/23 04/24/23 Rx (Pyridium) tamsulosin 0.4 mg capsule 0.4 mg PO HS #30 caps 04/08/23 04/24/23 Rx Saccharomyces boulardii 250 mg 250 mg PO BID #20 caps 04/14/23 04/24/23 Rx capsule (Florastor) docusate sodium 100 mg capsule 100 mg PO BID PRN constipation #30 04/14/23 04/24/23 Rx (Stool Softener) caps prochlorperazine maleate 10 mg 10 mg PO Q6 PRN Nausea 04/24/23 04/24/23 History tablet Patient History Medical History Bone lesion to have bone biopsies done in the near future - possible metastatic. CAD (coronary artery disease) LEXA X 1 TO LAD (02/05/18), multivessel CAD with stable class 1-2 angina pectoris per [facility] cardio records Congestive heart failure treated with entresto and jardiance. follows with Dr Jaramillo - [facility] Mayur pate. Esophageal cancer currently being treated with chemotherapy [id number]. dx earlier in 2022. following with Oncology [facility] valerio hair. GIST, non-malignant History of malignant neoplasm of bladder secondary cancer in 2019 History of pheochromocytoma s/p adrenalectomy 02/2012 History of prostate cancer S/P PROSTATECTOMY Hx of myocardial infarction 2017 - SEE DIAMOND HAD 1 STENT Hyperlipidemia Hypertension Inguinal hernia currently on the right inguinal Maintenance chemotherapy receiving Keytruda [id number]. Port-A-Cath in place Keytruda treatments [id number]. last treatment 03/30/23. 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 patient has ongoing chemotherapy treatments every 6 weeks Traumatic leg injury ~1975 traumatic accident. extensive right leg partial amputation that was able to be repaired and reattached with extensive grafts. Surgical History H/O transurethral resection of bladder tumor (TURBT) History of biopsy of bladder hx bladder cancer. History of cholecystectomy History of cystoscopy History of esophagogastroduodenoscopy (EGD) Hx of cardiac cath LEXA X 1 TO LAD (02/05/18) Hx of colonoscopy Hx of foot surgery RLE AND SKIN GRAFTS-- MULTIPLE REVISIONS; SUBSEQUENT RLE LIMB DEFORMITY (2/2 TRAUMA)-- ABLE TO AMBULATE WITHOUT ASSISTANCE Hx of prostatectomy Family History Mother Family history of diabetes mellitus Other No family history of adverse response to anesthesia Social History Smoking Status: Former smoker Tobacco Type: Cigarettes and Smokeless Tobacco (Dip or Chew) Cigarettes Per Day: DECEMBER 2017; 1PPD X 30 YEARS; Second Hand Exposure: No; Do You Dip or Chew Tobacco: No; Tobacco Cessation Education Requested by Patient: No Hx Alcohol Use: Yes (patient quit 6 years agon) Alcohol type: hard liquor Hx Substance Use: No Preferred Language: Greenlandic Communication Ability: Effective Visual Impairment: No Limitations Radiology Ct Technologist Required: No Beliefs That Will Affect Care: Spiritual Current Living Situation: Spouse Current Living Situation Comment: patient feels safe Other Information That Helps Us Care for You: No Feels Safe at Home: Yes Safety Concerns: Feels Safe At This Time Assistive Devices: None Review of Systems Review of Systems: All systems reviewed & are unremarkable except as noted in Subjective Physical Exam Physical Exam: Frail, cachectic male, semireclined in bed. Appears slightly older than stated age. Bitemporal wasting is noted. Pupils are equal, round and reactive to light. Extraocular movements are intact. There is no discharge or redness noted. Neck is supple. No JVD. No stridor. Dentition is very poor. Respiratory effort is normal. There is no use of accessory muscles noted. Lung sounds are diminished but otherwise clear. Heart tones are normal rhythm, S1- S2, no JVD, no murmur appreciated. Abdomen is tender throughout. There is some mild distention in the lower suprapubic region. There is epigastric tenderness with palpation. He has arthritic changes in his joints. There is generalized weakness. But strength is overall intact bilaterally there are some venous insufficiency changes to the lower extremities. He is awake alert and oriented. Results & Data Vital Signs (Past 12 Hours) Vital Signs Temp Pulse Resp BP Pulse Ox O2 Del Method 04/27/23 08:10 36.5 C 107 H 19 105/73 96 Room Air 04/27/23 07:59 Room Air Laboratory Results Data reviewed, see HPI Diagnostic Findings Data reviewed, see HPI PG Care Time/CCT Total # of Minutes Spent Total Time Spent: 125 Total Time Spent with Patient: Total time spent is greater than 50% in coordination of care (as documented) at patient's floor/unit and/or counseling patient: I spent 125 minutes overall addressing this complex case: 15 in medical data review/discussion with referring provider(s) and/or preparation for the visit, including outside hospital data review, Grupanya lengthy review of oncology/imaging/lab data 30 in direct interaction with the patient []and/or [] 65 Advance Care Planning/Goals of Care discussions as detailed above in note (must be >16min) 5 in subsequent review and synthesis of assessment and plan 10 in communicating with other providers regarding the patient's case: Primary team, nursing, care management Prolonged Care Time Prolonged Care Time: Yes Advanced Care Planning 78229 Advanced Care Planning 30 Min 85848 Advanced Care Planning Additional 30 [place] [address] IN/OBS CONSULT LVL 5,80M Patient Type New History Comprehensive Exam Comprehensive Medical Decision Making High Complexity Diagnoses Cancer related pain G89.3 Weakness generalized R53.1 Anxiety associated with cancer diagnosis F41.1; C80.1 Advanced care planning/counseling discussion Z71.89 Palliative care by specialist Z51.5 Encounter for hospice care discussion Z71.89 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
--- NOTE | 2023-04-27 10:29 | Communication Note ---
Date of Service: April 27, 2023 Brief palliative medicine note Notified by nursing earlier this morning the patient and his significant other have chosen to go home with hospice. Ultimately, he has expressed a desire to be at home if at all possible for his end-of-life and does not want to be placed unless he has to. I advised nursing to contact care management to update them with this request and have them begin working on those arrangements. I will continue to assist with patient's cancer related pain and symptom management during this admission and remain available to the hospice team for ongoing assistance with pain and symptom management recommendations if needed. Thank you for allowing us to participate in the ongoing care of this patient. Please don't hesitate to call or page with any additional concerns. Dr. Leeann Anderson DNP Director, Palliative Care
[2023-04-27 12:12] LABS: EBV Nuclear Ag Antibody <18.00 U/mL
[2023-04-27 12:52] LABS: CMV IgM Antibody <30.00 AU/mL; HBSAG NON-REACTIVE (NON-REACTIVE); Hepatitis A Antibody IgM NON-REACTIVE (NON-REACTIVE); Hepatitis B Core Antibody IgM NON-REACTIVE (NON-REACTIVE)
[2023-04-27] MEDS ORDERED: fentaNYL 25 MCG/HR TDSY TD SCH (13:30)
[2023-04-27] MEDS: AMMONIUM LACTATE 12% LOTION 225 GM BTL EXT SCH ×3 (14:33→19:53)
--- NOTE | 2023-04-27 15:03 | Hospitalist Progress Note ---
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 Patient has a history of adenocarcinoma of lower third of esophagus. His recent PET scan showed aggressive tumor burden with metastasis to multiple bones. Patient was admitted to telemetry floor with acute kidney injury, sepsis, elevated liver enzymes. Consultation was done with GI, nephrology, urology. Discussion of goals of care was done by palliative care; patient transition to comfort care. Plan for hospice at home. He is started on fentanyl patch along with as needed Dilaudid. 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 Patient to get discharged tomorrow morning IV fluid continued as requested by patient Remove Garvin per request Please note the above document was generated using voice recognition software. It may contain grammatical, syntax or spelling errors. Any formal questions or concerns about the content, text or information contained within the body of this dictation should be directly addressed to the provider for clarification Admission and Anticipated Discharge Date Admission Date: April 24, 2023 Subjective Patient seen and examined at bedside. He reports that he is feeling comfortable; not in any pain or discomfort. He wants to have Garvin catheter removed. Plan to go home tomorrow Review of Systems Review of Systems: All systems reviewed & are unremarkable except as noted in Subjective Physical Exam Physical Exam: GENERAL APPEARANCE: AxOx4, appears comfortable. NECK: Supple without lymphadenopathy. No stiffness or restricted ROM. HEART: Normal rate and regular rhythm, normal S1/S1, no m/r/g LUNGS: CTAB, moving air well. No crackles or wheezes are heard. ABDOMEN: Distended, firm. Hepatomegaly present. Bowel sound present. EXTREMITIES: Without cyanosis, clubbing or edema. NEUROLOGICAL: Grossly nonfocal. Alert and oriented, moving all 4 extremities. Grossly intact Results & Data Results & Data Vital Signs (Past 12 Hours) Vital Signs Temp Pulse Resp BP Pulse Ox O2 Del Method 04/27/23 08:10 36.5 C 107 H 19 105/73 96 Room Air 04/27/23 07:59 Room Air Laboratory Results Laboratory Results WBC 7.15 K/ul (4.8-10.8) 04/26/23 06:55 RBC 3.74 M/uL (4.70-6.10) L 04/26/23 06:55 Hgb 10.9 g/dl (14.0-18.0) L 04/26/23 06:55 POC Hgb 10.2 g/dl (14.0-18.0) L 04/24/23 12:24 Hct 33.9 % (42.0-52.0) L 04/26/23 06:55 POC Hct 30 % (42-52) L 04/24/23 12:24 MCV 90.6 fL (80.0-100.0) 04/26/23 06:55 MCH 29.1 pg (25.0-34.0) 04/26/23 06:55 MCHC 32.2 g/dL (32.0-36.0) 04/26/23 06:55 RDW Std Deviation 48.3 fL (36.4-46.3) H 04/26/23 06:55 RDW Coeff of Misael 14.7 % (11.5-14.5) H 04/26/23 06:55 Plt Count 216 K/uL (130-400) 04/26/23 06:55 MPV 11.2 fL (9.4-12.4) 04/26/23 06:55 Immature Gran % (Auto) 1.0 % 04/26/23 06:55 Neut % (Auto) 85.2 % 04/26/23 06:55 Lymph % (Auto) 4.5 % 04/26/23 06:55 Cavalier % (Auto) 6.6 % 04/26/23 06:55 Eos % (Auto) 1.7 % 04/26/23 06:55 Baso % (Auto) 1.0 % 04/26/23 06:55 Neut # (Auto) 6.10 K/uL (1.40-6.50) 04/26/23 06:55 Lymph # (Auto) 0.32 K/uL (1.20-3.40) L 04/26/23 06:55 Cavalier # (Auto) 0.47 K/uL (0.11-0.59) 04/26/23 06:55 Eos # (Auto) 0.12 K/uL (0.00-0.50) 04/26/23 06:55 Baso # (Auto) 0.07 K/uL (0.00-0.20) 04/26/23 06:55 Immature Gran # (Auto) 0.07 K/uL (0.01-0.20) 04/26/23 06:55 PT 10.4 Seconds (9.0-12.0) 04/24/23 12:14 INR 0.9 (0.9-1.1) 04/24/23 12:14 POC Sodium 141 mmol/L (135-144) 04/24/23 12:24 Sodium 138 mmol/L (136-145) 04/26/23 06:55 POC Potassium 3.9 mmol/L (3.3-5.0) 04/24/23 12:24 Potassium 4.7 mmol/L (3.5-5.1) 04/26/23 06:55 POC Chloride 109 mmol/L (101-112) 04/24/23 12:24 Chloride 107 mmol/L (98-107) 04/26/23 06:55 Carbon Dioxide 22 mmol/L (21-32) 04/26/23 06:55 POC Total CO2 18 mmol/L (24-31) L 04/24/23 12:24 Anion Gap 9 (3-11) 04/26/23 06:55 POC Anion Gap 18.0 mmol/L (16-25) 04/24/23 12:24 POC BUN 28 mg/dl (7-18) H 04/24/23 12:24 BUN 34 mg/dl (6-23) H 04/26/23 06:55 Creatinine 2.81 mg/dl (0.6-1.4) H D 04/26/23 06:55 POC Creatinine 1.9 mg/dl (0.6-1.3) H 04/24/23 12:24 Est Cr Clr Drug Dosing 25.2 ml/min 04/26/23 06:55 Est GFR ( Amer) 26.5 ml/min 04/26/23 06:55 Est GFR (Non-Af Amer) 22.9 ml/min 04/26/23 06:55 BUN/Creatinine Ratio 12.1 (10-20) 04/26/23 06:55 Glucose 115 mg/dl (70-99(Fasting)) H 04/26/23 06:55 POC Glucose (other) 86 mg/dl (70-99) 04/24/23 12:24 Lactate 1.6 mmol/L (0.4-2.0) 04/24/23 12:14 Calcium 8.7 mg/dl (8.6-10.3) 04/26/23 06:55 POC Ioniz Calcium Michelle 1.01 mmol/l (1.12-1.32) L 04/24/23 12:24 Phosphorus 3.9 mg/dl (2.5-4.9) 04/25/23 05:58 Magnesium 2.0 mg/dl (1.7-2.4) 04/25/23 05:58 Iron 43 mcg/dl (35-175) 04/25/23 05:58 Unsaturated IBC 114 mcg/dl (155-355) L 04/25/23 05:58 Transferrin 118 mg/dl (200-360) L 04/25/23 05:58 Ferritin 1238.7 ng/ml (8-388) H 04/25/23 05:58 Total Bilirubin 4.6 mg/dl (0.2-1.0) H 04/26/23 06:55 AST 283 U/L (13-39) H 04/26/23 06:55 ALT 319 U/L (7-52) H 04/26/23 06:55 Alkaline Phosphatase 1271 U/L (34-104) H 04/26/23 06:55 Total Creatine Kinase 28 U/L (30-223) L 04/25/23 05:58 Troponin I High Sens 11.7 pg/ml (0-20) 04/24/23 12:14 Total Protein 5.4 gm/dl (6.0-8.3) L 04/26/23 06:55 Albumin 2.8 gm/dl (3.4-5.0) L 04/26/23 06:55 Globulin 2.6 gm/dl (2.5-4.0) 04/26/23 06:55 Albumin/Globulin Ratio 1.1 (0.9-2) 04/26/23 06:55 Cholesterol 130 mg/dl (0-200) 04/25/23 05:58 Amylase 64 U/L (25-115) 04/25/23 05:58 Lipase 132 U/L (11-82) H 04/25/23 05:58 Procalcitonin 0.65 ng/ml (0-0.5) H 04/24/23 12:14 TSH 4.306 uIu/ml (0.300-4.500) 04/24/23 12:14 Urine Color Declo 04/24/23 12:37 Urine Appearance Cloudy (Clear) A 04/24/23 12:37 Urine pH (4.5-7.5) 04/24/23 12:37 Ur Specific [place] 1.024 (1.000-1.030) 04/24/23 12:37 Urine Protein (Negative) 04/24/23 12:37 Urine Glucose (UA) (Negative) 04/24/23 12:37 Urine Ketones (Negative) 04/24/23 12:37 Urine Blood (Negative) 04/24/23 12:37 Urine Nitrite (Negative) 04/24/23 12:37 Urine Bilirubin (Negative) 04/24/23 12:37 Urine Urobilinogen (Negative) 04/24/23 12:37 Ur Leukocyte Esterase (Negative) 04/24/23 12:37 Urine RBC >30 /hpf (0-4) H 04/24/23 12:37 Urine WBC >30 /hpf (0-5) H 04/24/23 12:37 Ur Epithelial Cells >30 /lpf (0-5) H 04/24/23 12:37 Urine Bacteria 2+ (Negative) H 04/24/23 12:37 Acetaminophen < 3 ug/ml (10-30) L 04/25/23 05:58 CMV IgM Ab <30.00 AU/mL 04/25/23 05:58 EBV Capsid Ag IgG Ab 742.00 U/mL H 04/25/23 05:58 EBV Capsid Ag IgM Ab <36.00 U/mL 04/25/23 05:58 EBV Nuclear Antigen Ab <18.00 U/mL 04/25/23 05:58 EBV Antibody Interp SEE NOTE 04/25/23 05:58 Hepatitis A IgM Ab NON-REACTIVE (NON-REACTIVE) 04/25/23 05:58 Hep Bs Antigen NON-REACTIVE (NON-REACTIVE) 04/25/23 05:58 Hep Bs Ag Confirmation TNP 04/25/23 05:58 Hep B Core IgM Ab NON-REACTIVE (NON-REACTIVE) 04/25/23 05:58 Hepatitis C Ab (EIA) NON-REACTIVE (NON-REACTIVE) 04/25/23 05:58 SARS-CoV-2, RNA, NAAT NEGATIVE (NEGATIVE) 04/24/23 Unknown Blood Type O Positive 04/24/23 12:14 Antibody Screen NEGATIVE 04/24/23 12:14 Impressions Chest X-Ray 04/24/23 12:06 XR chest 1V portable CLINICAL HISTORY: weakness TECHNIQUE: Single frontal radiograph of the chest was obtained. Comparison: Comparison is made to chest radiograph 04/14/2023 FINDINGS: A port catheter is seen. The cardiomediastinal silhouette is normal. Mild perihilar opacities are seen, right greater than left. Minimal emphysematous changes are seen. No evidence of pleural effusion or pneumothorax. IMPRESSION: Mild pulmonary edema. Right greater than left perihilar opacities may reflect atelectasis, less likely viral pneumonia. ACT 112: Negative or not required by law. Electronically signed by: Eugenio Mohr M.D. 04/24/2023 12:46 PM Abdomen/Pelvis CT 04/24/23 12:27 CT abd pelvis wo con CLINICAL HISTORY: kidney pain, SHANE, cancer stents TECHNIQUE: Helical axial images of the abdomen and pelvis were obtained. Automated dose lowering techniques and/or adjustment according to patient size were utilized for this exam. This exam was performed without intravenous contrast. CT DOSE: 1209.53 mGy.cm COMPARISON: Comparison is made to CT abdomen pelvis 04/14/2023 FINDINGS: Lower chest: Small bilateral pleural effusions are seen with underlying atelectasis. Partial visualization of thoracic lymphadenopathy. Liver: Periportal edema is seen. Nodular contour of the liver is compatible with cirrhosis. Gallbladder and biliary tree: Patient is status post cholecystectomy. No intra- or extrahepatic biliary ductal dilation. Pancreas: Unremarkable, no focal lesions. Spleen: Unremarkable. Adrenals: Unremarkable. Kidneys and ureters: Bilateral nephroureteral stents are seen. Left hydronephrosis is seen. Irregular soft tissue about the left ureter is again noted. Bladder: Limited evaluation due to underdistention. Reproductive organs: Unremarkable. Bowel: A hiatal hernia is seen. Lymph nodes Retroperitoneal: A robbie hepatis lymph node measures 35 mm in short axis, increased from prior. Additional retroperitoneal lymphadenopathy is seen. Pelvic: Unremarkable. Mesenteric: Unremarkable. Peritoneum: Redemonstration of peritoneal deposits most prominent in the right upper quadrant. Mild ascites is seen. Vessels: Atherosclerotic calcifications are seen. Abdominal wall: Bilateral fat-containing inguinal hernias are seen. Bones: A few osteolytic foci are seen in the lower bony metastatic disease, similar to prior exam. IMPRESSION: 1. Left hydronephrosis is again seen despite presence of bilateral ureteral stents. Otherwise no acute abnormalities are seen. 2. Robbie hepatis and retroperitoneal lymphadenopathy are again seen. The dominant lymph node in the robbie hepatis is enlarged from prior exam. 3. Redemonstration of metastatic soft tissue implants and lucencies in the spine concerning for osteolytic metastatic disease. 4. Cirrhosis and mild ascites. 5. Trace bilateral pleural effusions. ACT 112: Negative or not required by law. Electronically signed by: Eugenio Mohr M.D. 04/24/2023 2:11 PM Abdomen Ultrasound 04/26/23 07:00 Limited abdominal ultrasound INDICATION: Ascites; possible paracentesis FINDINGS: Real-time ultrasound imaging in all 4 abdominal quadrants demonstrates a trace amount of ascites at the dome of the liver. No paracentesis will be performed. IMPRESSION: Scant ascites noted as above. No paracentesis was performed due to location and small quantity. Electronically signed by: Eugenio Mohr M.D. 04/26/2023 8:53 PM Portal Vein US 04/26/23 07:00 US duplex portal hepatic veins CLINICAL HISTORY: assess vasculature COMPARISON STUDY: CT of the abdomen and pelvis with contrast April 14, 2023. CT of the abdomen and pelvis without contrast April 24, 2023. FINDINGS: The middle, left and right hepatic veins are patent. The main and right portal veins are patent with appropriately directed flow. No flow is identified within the left portal vein with possible portal venous thrombus. This vessel was patent on contrast enhanced CT of April 14, 2023. Hepatic artery is patent. Hepatic artery waveform is normal. IMPRESSION: 1. Patent main and right portal veins. 2. Possible thrombus within the left portal vein, as described above. This may be artifactual however interval thrombosis since CT of April 14, 2023 cannot be excluded. ACT 112: Negative or not required by law. Electronically signed by: Quirino Fu M.D. 04/26/2023 1:59 PM
--- NOTE | 2023-04-27 15:47 | Palliative Care Progress Note ---
Date of Service April 27, 2023 Assessment & Plan (1) Cancer related pain: Plan: Will inc to TDF 25mcg, since he is opioid tolerant and total MMEs exceed the equivalent of TDF 25mcg, will see if this reduced for cross tolerance dose is helpful. (2) Weakness generalized: (3) Anxiety associated with cancer diagnosis: (4) Palliative care by specialist: (5) Encounter for hospice care discussion: Plan: We reviewed the hospice benefit: an interdisciplinary program offered by nurses, nurses aides, social workers, chaplains and a medical chemist for patients with a terminal condition and a life expectancy of less than 6 months. This is covered by Medicare at 100%/no out of pocket expense to patient and all meds/supplies needed by patient for the reason they are on hospice are paid for/covered by hospice. The goal is assure quality of life of the patient in their home setting (home, group home, inpatient hospice setting) by providing symptoms management, psychosocial and spiritual support. However, they cannot offer 24 hours care and if the family is unable to provide that care, they will have to consider personal care with out of pocket cost vs. group home placement. We discussed the goals of hospice as a patient service and the goals of care; we discussed EOL trajectories and transitions michelle the emotional impact of realizing mortality as a concrete reality from prior abstract considerations. Pt was reassured that no matter where they are along this trajectory, they are not alone - their medical team will remain by their side through their journey. Discussed the pros/cons of accepting help when especially weakened and distressed by pain-which would also help provide relief/decrease caregiver burden/strain. I very specifically and very clearly in simple language advised pt and girlfriend hospice is not there in your home around the clock, they visit for 1- 2 hours but the rest of the care comes from you. GF replied she feels she has plenty of help and support from his sister, their friends and her brother. She als says she spoke with their social group and "everyone agreed to help chip in for his so I won't have that worry hanging above my head all the time." (6) Adenocarcinoma of esophagus metastatic to lymph nodes of multiple sites: Plan * TDF to 25mcg * [employer] continues * Home with hospice tomorrow, see CM notes for details Thank you for allowing us to participate in the ongoing care of this patient. Please don't hesitate to call or page with any additional concerns. Dr. Leeann Anderson DNP Director, Palliative Care Admission and Anticipated Discharge Date Admission Date: April 24, 2023 Subjective remains on [employer] TDF not helping much and this morning appears to have fallen off him arm - placed on right upper arm, he has been lying on right side and frequently repositioning arm. path found off skin, rolled up and in bed linens. nursing notified. he and girlfriend spoke more about home hospice and she now wants to bring him home. he feels this allows him best chance to handle legal issues. They say his family (sister, etc) and her brother will now help and they had a strong limit setting conversation with her brother last night where he was told "either get with the program or you can leave." Review of Systems Review of Systems: All systems reviewed & are unremarkable except as noted in Subjective Physical Exam Physical Exam: Frail, cachectic male, semireclined in bed. Appears slightly older than stated age. Bitemporal wasting is noted. Pupils are equal, round and reactive to light. Extraocular movements are intact. There is no discharge or redness noted. Neck is supple. No JVD. No stridor. Dentition is very poor. Respiratory effort is normal. There is no use of accessory muscles noted. Lung sounds are diminished but otherwise clear. Heart tones are normal rhythm, S1- S2, no JVD, no murmur appreciated. Abdomen is tender throughout. There is some mild distention in the lower suprapubic region. There is epigastric tenderness with palpation. He has arthritic changes in his joints. There is generalized weakness. But strength is overall intact bilaterally there are some venous insufficiency changes to the lower extremities. He is awake alert and oriented. Results & Data Vital Signs (Past 12 Hours) Vital Signs Temp Pulse Resp BP Pulse Ox O2 Del Method 04/27/23 08:10 36.5 C 107 H 19 105/73 96 Room Air 04/27/23 07:59 Room Air PG Care Time/CCT Total # of Minutes Spent Total Time Spent: 65 Total Time Spent with Patient: Total time spent is greater than 50% in coordination of care (as documented) at patient's floor/unit and/or counseling patient: Advanced Care Planning [id number] Advanced Care Planning 30 Min [place] [address] SUB INP/OBS CARE 3/50MIN Patient Type Established History Comprehensive Exam Comprehensive Medical Decision Making High Complexity Diagnoses Cancer related pain G89.3 Weakness generalized R53.1 Anxiety associated with cancer diagnosis F41.1; C80.1 Palliative care by specialist Z51.5 Encounter for hospice care discussion Z71.89 Adenocarcinoma of esophagus metastatic to lymph nodes of multiple sites C15.9; C77.8 Additional Codes Advanced Care Planning - 47523 Advanced Care Planning 30 Min: 43074 Advanced Care Planning 30 Min ([id number])
[2023-04-28] MEDS: HYDROmorphone INJ 0.5 MG/0.5 ML SYR IV PRN ×3 (00:32→13:34)
[2023-04-28] MEDS: AMMONIUM LACTATE 12% LOTION 225 GM BTL EXT SCH ×3 (00:33→13:33)
[2023-04-28] MEDS: CHECK fentaNYL PATCH PLACEMENT SCH ×2 (00:34→08:33)
[2023-04-28] MEDS: SODIUM CHLORIDE 0.9% 1,000 ML IV SCH (06:11)
[2023-04-28] MEDS: ONDANSETRON INJ 2 MG/ML 2 ML VIAL IV PRN (08:29)
[2023-04-28] MEDS: DOCUSATE SODIUM 100 MG CAP PO SCH (09:06)
[2023-04-28] MEDS: POLYETHYLENE (MIRALAX) 17 GM PACK PO SCH (09:07)
[2023-04-28] MEDS: ADVANCED PROBIOTIC 1250 MG CAPSULE PO SCH (09:09)
--- NOTE | 2023-04-28 12:39 | Discharge Summary ---
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 Discussion of goals of care was done by palliative care; patient transition to comfort care and discharge home with hospice Medication Changes From Visit Fentanyl patch 25mcg Q72H Dilaudid 2mg PO Q6H PRN for breakthrough pain Bowel regimen as needed with Milk and Mag and Miralax PRN Admission HPI Per Admitting Provider Mr. 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 due to multiple concerns, including abdominal pain, vomiting, poor appetite, weakness, and hematuria. On 04/08/2023, patient states he had stents placed by Dr Singer and since then has experienced dull aching in his back. Patient presented to ED on 04/14 due to the pain and felt improved after IV fluids and pain medication. Patient completed course of Keflex post stent placement--but despite that, still notes continued pain. Shortly after the ED visit, patient reports an episode of projectile vomiting; then on 04/23, a massive quantity of bilious vomiting. Patient states his urine is also progressively darker and with gross blood often--but his UOP has decreased significantly. He reports minimal appetite. He states he took all of his medications this morning, but progressive became weaker, prompting visit to ED. Upon arrival to ED, patient was hypotensive to 70s, but responded to fluid boluses with pressures stabilizing in 90s. HRs in 80s and saturating well on room air. Imaging revealed cirrhotic liver, surgical absence of gallbladder without apparent ductal dilatation, mild ascites with peritoneal deposits. Labs with stable anemia at 12, SHANE to 2.2, AST 641, ALT 578, ALP 1802, TB 2.9, procal 0.65, lipase 95 Patient administered zosyn, 2L IV Admit to PCU/Tele for management of sepsis of unclear source and acute liver injury Family at bedside ( and daughter). Family expresses clear understanding of extent of underlying malignancy, but wishes to pursue all avenues and evaluations available. The only reconsideration is if patient is to be deemed "brain " that discussion regarding comfort measures will be considered. Admission Exam Per Admitting Provider GENERAL APPEARANCE: AxOx4, unwell HEENT: NC, AT. MMM. EOMI, clear conjunctiva, oropharynx clear, poor dentition, bile stained lips NECK: Supple without lymphadenopathy. No stiffness or restricted ROM. HEART: Normal rate and regular rhythm, normal S1/S1, no m/r/g LUNGS: CTAB, moving air well. No crackles or wheezes are heard. ABDOMEN: distended, firm HM, nontender, no CVA tenderness elucidated on exam EXTREMITIES: Without cyanosis, clubbing or edema. NEUROLOGICAL: Grossly nonfocal. Alert and oriented, moving all 4 extremities. 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 Patient has a history of adenocarcinoma of lower third of esophagus. His recent PET scan showed aggressive tumor burden with metastasis to multiple bones. Was initially admitted to telemetry floor with acute kidney injury, sepsis, elevated liver enzymes. Consultation was done with GI, nephrology, urology. Discussion of goals of care was done by palliative care; patient transition to comfort care. Plan for hospice at home. Sending home with fentanyl patch for pain control, PRN Dilaudid for breakthrough pain, antiemetics, bowel regimen. Case management has coordinated home hospice. Comfortable at time of discharge. Discharge Exam Gen: WD/WN, NAD, resting comfortably in bed, A&Ox3, at bedside HEENT: Normocephalic, atraumatic, conjunctivae moist, sclerae anicteric, mucous membranes moist Lung: Clear to Auscultation bilaterally, no wheezes/rales/rhonchi Heart: Regular rate, regular rhythm, no murmurs, rubs, or gallops Abdomen: +BS Distended, firm +Hepatomegaly present Extremities: no edema Skin: Warm, no rash Updated Medication List Medication Instructions Recorded Confirmed Type aspirin 81 mg chewable tablet 81 mg PO QAM 04/21/18 04/24/23 History alirocumab 75 mg/mL subcutaneous 75 mg subcut UD 03/28/23 04/24/23 History pen injector (Praluent Pen) atorvastatin 80 mg tablet 80 mg PO QAM 03/28/23 04/24/23 History empagliflozin 10 mg tablet 10 mg PO QAM 03/28/23 04/24/23 History (Jardiance) ezetimibe 10 mg tablet 10 mg PO QAM 03/28/23 04/24/23 History metoprolol succinate 100 mg 100 mg PO QAM 03/28/23 04/24/23 History tablet,extended release 24 hr sacubitril 24 mg-valsartan 26 mg 1 tab PO BID 03/28/23 04/24/23 History tablet (Entresto) spironolactone 25 mg tablet 25 mg PO QAM 03/28/23 04/24/23 History phenazopyridine 200 mg tablet 200 mg PO Q8H PRN pain #10 tabs 04/08/23 04/24/23 Rx (Pyridium) tamsulosin 0.4 mg capsule 0.4 mg PO HS #30 caps 04/08/23 04/24/23 Rx Saccharomyces boulardii 250 mg 250 mg PO BID #20 caps 04/14/23 04/24/23 Rx capsule (Florastor) docusate sodium 100 mg capsule 100 mg PO BID PRN constipation #30 04/14/23 04/24/23 Rx (Stool Softener) caps prochlorperazine maleate 10 mg 10 mg PO Q6 PRN Nausea 04/24/23 04/24/23 History tablet fentanyl 25 mcg/hr transdermal 25 mcg transdermal Q3D #10 ea 04/28/23 Rx patch hydromorphone 2 mg tablet 2 mg PO Q6H #20 tabs 04/28/23 Rx (Dilaudid) magnesium hydroxide 400 mg/5 mL 5 ml PO BID PRN constipation 04/28/23 Rx oral suspension (Milk of Magnesia) #3,780 mL ondansetron 4 mg disintegrating 4 mg PO Q8H PRN nausea and 04/28/23 Rx tablet vomiting 4 days #30 tabs polyethylene glycol 3350 17 4 g PO DAILY #119 grams 04/28/23 Rx gram/dose oral powder (ClearLax) Hospital Stay Data Consultations 04/24/23 14:36 ED Decision to Admit Stat 04/24/23 16:22 Consult Urology Stat 04/24/23 19:29 Consult Gastroenterology Routine 04/24/23 23:04 Consult Oncology Routine 04/25/23 09:33 Consult Palliative Care Routine 04/26/23 07:48 Consult Nephrology Routine Diagnostic Imagining Performed 04/24/23 12:27 CT abd pelvis wo con Stat 04/26/23 07:00 US abdomen ltd ascites Routine US duplex portal hepatic veins Routine Pending Results Patient Have Any Pending Studies at Discharge: No Discharge Instructions Given to Patient (Per Discharging Provider) MEDICATION CHANGES: Fentanyl patch 25mcg Q72H Dilaudid 2mg PO Q6H PRN for breakthrough pain Bowel regimen as needed with Milk and Mag and Miralax PRN -- You were admitted to hospital secondary to sepsis and ongoing aggressive malignant process Consultation was done with GI, nephrology, urology Discussion of goals of care was done by palliative care; patient transition to comfort care Plan for hospice at home. PENDING TEST RESULTS: None RECOMMENDATIONS FOR FOLLOW-UP: Follow up with PCP and Dr. Aquino of [facility] onc as scheduled. Continue medication regimen as scheduled aside from changes noted above. OTHER INSTRUCTIONS: Seek medical attention if you have: * temperature above 101 * chest pain or trouble breathing * abdominal pain, nausea, vomiting * diarrhea, dark stools or bloody stools * any unanswered questions or concerns Call 911 if symptoms are severe. Please take good care of yourself. Call if you have any questions or problems. You can reach a [facility] hospitalist on duty at [facility] 24 hours a day by calling [phone]. Total Time Total Time Spent Total Time Spent (In Minutes): 45 Supervising Physician Co-Signing Physician Notes Patient seen and examined independently. Discussed with above provider. Patient and family wants to take patient home on hospice care. Discussed with significant other at bedside
== END 2023-04-28 14:43 | disposition hospice, home (50) | DRG 872 ==
LOC: ED 11:40 → SUATTDRO 16:21 → 2S 16:21 → ED 18:00 → 3N 04-27 22:16